=== PATIENT | male | born 1930 | race Caucasian/White ===

== ENCOUNTER → 2017-01-27 | Outpatient (REF) | payer MEDICARE | LOC: M LAB REF 12:50 | PROVIDERS: ATTEND Nurse Practitioner Family | DX: E55.9 Vitamin D deficiency, unspecified (principal); R19.7 Diarrhea, unspecified; R14.0 Abdominal distension (gaseous) ==

== ENCOUNTER → 2017-03-31 | Outpatient (REF) | payer MEDICARE | LOC: M LAB REF 11:36 | PROVIDERS: ATTEND Internal Medicine Gastroenterology | DX: R19.7 Diarrhea, unspecified (principal) ==

== ENCOUNTER → 2017-04-21 | Outpatient (CLI) | payer MEDICARE ==
[~2017-04-21] VITALS: Ht 160 cm; Wt 69.4 kg
[~2017-04-21] MED LIST: LISI-542 PO; NS 500 ML IV SCH; PROPOFOL 200 MG/20 ML VIAL As Ordered ONE; VITA10003 PO; VITA100067 PO
--- NOTE | 2017-04-21 08:00 | ROOR ---
Patient Name: Efrem Stanley Procedure Date: 04/21/2017 7:29 AM Date of : 1930 Age: 86 Room: [facility] Gender: Male Note Status: Finalized Procedure: Colonoscopy Indications: Chronic diarrhea Providers: Suresh GOLDSMITH MD Referring MD: [facility] Geovanna NUNES [facility], Admin. Requesting Provider: Medicines: Monitored Anesthesia Care Complications: No immediate complications. Procedure: Pre-Anesthesia Assessment: - The heart rate, respiratory rate, oxygen saturations, blood pressure, adequacy of pulmonary ventilation, and response to care were monitored throughout the procedure. The Colonoscope was introduced through the anus and advanced to 6 cm into the ileum. The colonoscopy was performed without difficulty. The patient tolerated the procedure well. The quality of the bowel preparation was fair. Findings: The perianal and digital rectal examinations were normal. (EXAM: Complete, PREP: Suboptimal) The colon (entire examined portion) appeared normal. Biopsies for histology were taken with a cold forceps from the entire colon for evaluation of microscopic colitis. Segmental inflammation, moderate in severity and characterized by congestion (edema), erosions and shallow ulcerations was found in the terminal ileum. Biopsies were taken with a cold forceps for histology. Impression: - Preparation of the colon was fair, suboptimal in a few areas. - Ileitis, appearance consistent with ileal Crohn's disease vs ischemic vs NSAID. Biopsied. - The entire examined colon is normal. Biopsied. - Large internal hemorrhoids. Recommendation: - Use budesonide 9 mg PO one time per day daily. - Return to my office in 4 weeks. - (the script was sent to your pharmacy on file) Suresh Goldsmith MD Suresh GOLDSMITH MD 04/21/2017 7:59:40 AM This report has been signed electronically. Number of Addenda: 0 Note Initiated On: 04/21/2017 7:29 AM Estimated Blood Loss: Estimated blood loss: none.
[2017-04-21 08:15] VITALS: BP 178/91
== END | disposition home or self-care (01) ==
LOC: M OPP 06:43
PROVIDERS: ATTEND Internal Medicine Gastroenterology
DX: K52.9 Noninfective gastroenteritis and colitis, unspecified (principal); K64.8 Other hemorrhoids; I10 Essential (primary) hypertension; F17.210 Nicotine dependence, cigarettes, uncomplicated; Z79.899 Other long term (current) drug therapy; Z80.3 Family history of malignant neoplasm of breast

== ENCOUNTER → 2017-05-25 | Outpatient (CLI) | payer MEDICARE ==
[~2017-05-25] MED LIST changes: -NS 500 ML IV SCH; -PROPOFOL 200 MG/20 ML VIAL As Ordered ONE
[2017-05-25 15:28] LABS: BASO # 0.1 K/mm3 (0.0-0.2); BASO % 0.4 % (0.0-1.0); EOS # 0.1 K/mm3 (0.0-0.50); EOS % 1.1 % (0.0-3.0); LARGE UNSTAINED CELL # 0.2 K/mm3 (0.0-0.4); LARGE UNSTAINED CELL % 1.2 % (0.0-4.0); LYMPH # 2.4 K/mm3 (1.5-4.5); MEAN CORPUSCULAR HEMOGLOBIN 30.4 pg (27.0-33.0); MEAN CORPUSCULAR HGB CONC 34.4 g/dl (32.0-36.5); MEAN CORPUSCULAR VOLUME 88.5 fl (80.0-96.0); MONO # 0.8 K/mm3 (0.0-0.8); MONO % 6.1 % (0.0-5.0); NEUTROPHILS # 9.2 K/mm3 (1.8-7.7); NEUTROPHILS % 73.1 % (36.0-66.0); PLATELET COUNT, AUTOMATED 191 k/mm3 (150-450); RED CELL DISTRIBUTION WIDTH 13.9 % (11.5-14.5); WHITE BLOOD COUNT 12.5 K/mm3 (4.0-10.0)
[2017-05-25 15:43] LABS: ALBUMIN 3.3 GM/DL (3.2-5.2); ALBUMIN/GLOBULIN RATIO 0.97 (1.00-1.93); CALCIUM LEVEL 8.8 MG/DL (8.8-10.2); CREATININE FOR GFR 1.35 MG/DL (0.70-1.30); GLOMERULAR FILTRATION RATE 53.3 (>35); POTASSIUM SERUM 3.1 MEQ/L (3.5-5.1); TOTAL PROTEIN 6.7 GM/DL (6.4-8.2)
[2017-05-25 15:59] LABS: FOLATE 6.2 NG/ML (>5.4)
[2017-05-25 16:11] LABS: ERYTHROCYTE SEDIMENTATION RATE 13 mm/hr (0-30)
[2017-06-07 06:32] LABS: PROMETHEUS IBD ANTIBODIES SEE SEPARATE REPORT; PROMETHEUS IBD SNP SEE SEPARATE REPORT
== END ==
LOC: M LAB 14:17
PROVIDERS: ATTEND Internal Medicine Gastroenterology
DX: K52.9 Noninfective gastroenteritis and colitis, unspecified (principal)

== ENCOUNTER → 2017-06-02 | Outpatient (CLI) | payer MEDICARE ==
[~2017-06-02] MED LIST changes: +E-Z-PAQUE 96% w/w SUSP 176GM BTL As Ordered ONE
--- NOTE | 2017-06-02 12:24 | REP ---
Small bowel follow-through study: History: Gastroenteritis, colitis, diarrhea. Fluoroscopy time is 2 minutes and 7 seconds. Findings: Preliminary director of business services view of the abdomen is unremarkable. The duodenal C-loop and ligament of Treitz are intact. Jejunal loops appear unremarkable. Barium opacifies the right colon after 30 minutes. Fluoroscopic spot films of the abdomen show a very small caliber narrow appearing terminal ileum but without proximal dilation. Similarly, there is a loop of small bowel in the left mid abdomen with tapered narrowing and evidence of mucosal thickening. No other small bowel abnormality is seen. Impression: There are two separate loops of narrowed ileum one proximal and the other at the terminal ileum. These are suggestive of inflammatory bowel disease. Further evaluation may be warranted with CT scanning of the abdomen and pelvis with IV and oral contrast. Signed by Srikanth Sethi MD 06/02/2017 01:59 P
== END ==
LOC: M RAD 09:15
PROVIDERS: ATTEND Internal Medicine Gastroenterology
DX: K52.9 Noninfective gastroenteritis and colitis, unspecified (principal)

== ENCOUNTER → 2017-06-29 | Outpatient (CLI) | payer MEDICARE ==
[~2017-06-29] MED LIST changes: -E-Z-PAQUE 96% w/w SUSP 176GM BTL As Ordered ONE
[2017-06-29 13:57] LABS: BLOOD UREA NITROGEN 18 MG/DL (7-18); CREATININE FOR GFR 1.44 MG/DL (0.70-1.30); GLOMERULAR FILTRATION RATE 49.5 (>35)
== END ==
LOC: M LAB 12:11
PROVIDERS: ATTEND Internal Medicine Gastroenterology
DX: K50.018 Crohn's disease of small intestine with other complication (principal); K52.9 Noninfective gastroenteritis and colitis, unspecified; R93.3 Abnormal findings on diagnostic imaging of other parts of digestive tract

== ENCOUNTER → 2017-07-14 | Outpatient (CLI) | payer MEDICARE ==
[~2017-07-14] MED LIST changes: +GASTROGRAFIN SOLUTION 30ML (Q9963) As Ordered ONE; +ISOVUE-370 76% 100ML VIAL (Q9967) As Ordered ONE
--- NOTE | 2017-07-14 13:43 | REP ---
CT of the abdomen and pelvis without and with IV contrast and with bowel contrast: Comparison is 09/16/2007. There is wall thickening of the approximate final of 30 centimeters of the terminal ileum compatible with the clinical history of Crohn disease. There is no phlegmon adjacent to the abnormal segment of small bowel. No fistulous tracts are identified. No other segments of small bowel involvement are identified. The duodenal loop is unremarkable except that I suspect there are two intraluminal lipomatous polyps in the third and fourth portions of the duodenum with the proximal one measuring 1.2 cm diameter and the distal one measuring 1.0 x 2.3 centimeters. The visualized lower lung caldera demonstrate calcific pleural plaque in the posterior sulci of the lower lobes bilaterally. The hepatic parenchyma is homogeneous on both phases of the study. There is a surgical clip in the gallbladder fossa. The pancreas is unremarkable. The spleen is unremarkable. The adrenals and kidneys are unremarkable except for a tiny left renal cortical cyst. The abdominal aorta contains calcified atheroma but is otherwise unremarkable. Pelvis: Terminal ileum is as described. The appendix has a normal appearance. There is no ascites or adenopathy. There is descending colon and sigmoid colon diverticulosis without diverticulitis. There is wall thickening of the rectosigmoid colon, nonspecific, artifact from under distension versus colitis, inflammatory versus infectious. Impression: Wall thickening of the approximate 30 cm of the terminal ileum compatible with the clinical history of Crohn disease. No phlegmon or abscess is identified adjacent to the abnormal terminal ileum. No fistulous tracts are identified. No other areas of small bowel involvement are identified. However, there is wall thickening of the rectosigmoid colon. This is nonspecific and could be artifact from under distension or inflammatory versus infectious colitis. There is diverticulosis without diverticulitis of the descending colon and sigmoid colon. There is no ascites or adenopathy. There are two lipomas polyps in the third and fourth portion of the duodenal loop. There is a small hiatal hernia. There is a cholecystectomy. Signed by Dimitri Paz MD 07/14/2017 01:35 P
== END ==
LOC: M RAD 11:12
PROVIDERS: ATTEND Internal Medicine Gastroenterology
DX: K52.9 Noninfective gastroenteritis and colitis, unspecified (principal)
CPT/HCPCS: 74178; Q9963; Q9967

== ENCOUNTER → 2017-12-02 | Outpatient (REF) | payer MEDICARE | LOC: M LAB REF 12:02 | DX: K50.018 Crohn's disease of small intestine with other complication (principal) | CPT/HCPCS: 87507 ==

== ENCOUNTER 2017-12-14 11:56 | Outpatient (CLI) | payer MEDICARE ==
[2017-12-14] MEDS: diphenhydrAMINE 25 MG CAP PO (12:49)
[2017-12-14] MEDS: ACETAMINOPHEN TAB 650MG DOSE (2X325MG) PO (12:49)
[2017-12-14] MEDS: NS 1,000 ML IV (13:31)
[2017-12-14] MEDS: INFLIXIMAB BIOSIMILAR 400 MG in NS 210 ML IV (13:31)
== END 2017-12-14 16:00 | disposition home or self-care (01) ==
LOC: M INFU 11:56
DX: K50.90 Crohn's disease, unspecified, without complications (principal); I10 Essential (primary) hypertension; F17.210 Nicotine dependence, cigarettes, uncomplicated; Z79.899 Other long term (current) drug therapy
CPT/HCPCS: Q5102

== ENCOUNTER 2017-12-28 14:11 | Outpatient (CLI) | payer MEDICARE ==
[2017-12-28] MEDS: ACETAMINOPHEN TAB 650MG DOSE (2X325MG) PO (14:33)
[2017-12-28] MEDS: diphenhydrAMINE 25 MG CAP PO (14:33)
[2017-12-28] MEDS: NS 1,000 ML IV (14:46)
[2017-12-28] MEDS: INFLIXIMAB BIOSIMILAR 400 MG in NS 210 ML IV (14:47)
== END 2017-12-28 17:30 | disposition home or self-care (01) ==
LOC: M INFU 14:11
DX: K50.90 Crohn's disease, unspecified, without complications (principal); I10 Essential (primary) hypertension; F17.200 Nicotine dependence, unspecified, uncomplicated; Z79.899 Other long term (current) drug therapy; Z80.3 Family history of malignant neoplasm of breast
CPT/HCPCS: Q5102

== ENCOUNTER 2018-01-25 09:11 | Outpatient (CLI) | payer MEDICARE ==
[2018-01-25] MEDS: diphenhydrAMINE 25 MG CAP PO (09:25)
[2018-01-25] MEDS: ACETAMINOPHEN TAB 650MG DOSE (2X325MG) PO (09:25)
[2018-01-25] MEDS: NS 1,000 ML IV (09:26)
[2018-01-25] MEDS: inFLIXimab INJECTION 400 MG in NS 210 ML IV (10:01)
== END 2018-01-25 12:15 | disposition home or self-care (01) ==
LOC: M INFU 09:11
DX: K50.90 Crohn's disease, unspecified, without complications (principal); I10 Essential (primary) hypertension; Z79.899 Other long term (current) drug therapy; F17.210 Nicotine dependence, cigarettes, uncomplicated
CPT/HCPCS: J1745

== ENCOUNTER → 2018-03-01 | Outpatient (CLI) | payer MEDICARE ==
[2018-03-01 17:33] LABS: BASO # 0.1 10^3/uL (0.0-0.2); BASO % 0.6 % (0.0-1.0); EOS # 0.2 10^3/uL (0.0-0.50); EOS % 1.7 % (0.0-3.0); HEMATOCRIT 39.8 % (42.0-52.0); HEMOGLOBIN 13.8 g/dl (13.5-17.5); IMMATURE GRANULOCYTE % 0.3 % (0-3.0); LYMPH # 3.2 10^3/uL (1.5-4.5); LYMPH % 27.4 % (24.0-44.0); MEAN CORPUSCULAR HEMOGLOBIN 29.7 pg (27.0-33.0); MEAN CORPUSCULAR HGB CONC 34.7 g/dl (32.0-36.5); MEAN CORPUSCULAR VOLUME 85.8 fl (80.0-96.0); MONO # 1.2 10^3/uL (0.0-0.8); MONO % 10.4 % (0.0-5.0); NEUTROPHILS % 59.6 % (36.0-66.0); PLATELET COUNT, AUTOMATED 237 10^3/uL (150-450); RED BLOOD COUNT 4.64 10^6/uL (4.30-6.10); RED CELL DISTRIBUTION WIDTH 14.4 % (11.5-14.5); WHITE BLOOD COUNT 11.7 10^3/uL (4.0-10.0)
[2018-03-01 18:51] LABS: VITAMIN B12 LEVEL 247 PG/ML
[2018-03-01 19:59] LABS: ALBUMIN 3.3 GM/DL (3.2-5.2); ALBUMIN/GLOBULIN RATIO 0.92 (1.00-1.93); ALKALINE PHOSPHATASE 82 U/L (45-117); ALT/SGPT 12 U/L (12-78); ANION GAP 4 MEQ/L (8-16); AST/SGOT 12 U/L (7-37); BILIRUBIN,TOTAL 0.4 MG/DL (0.2-1.0); BLOOD UREA NITROGEN 12 MG/DL (7-18); C REACTIVE PROTEIN QUANTITATIV 0.35 MG/DL (0.00-0.30); CALCIUM LEVEL 8.6 MG/DL (8.8-10.2); CARBON DIOXIDE LEVEL 31 MEQ/L (21-32); CHLORIDE LEVEL 110 MEQ/L (98-107); CREATININE FOR GFR 1.18 MG/DL (0.70-1.30); GLOMERULAR FILTRATION RATE > 60.0 (>35); GLUCOSE, FASTING 92 MG/DL (70-100); POTASSIUM SERUM 3.4 MEQ/L (3.5-5.1); SODIUM LEVEL 145 MEQ/L (136-145); TOTAL PROTEIN 6.9 GM/DL (6.4-8.2)
[2018-03-01 21:28] LABS: ERYTHROCYTE SEDIMENTATION RATE 25 mm/hr (0-30)
== END ==
LOC: M LAB 16:56
DX: K50.018 Crohn's disease of small intestine with other complication (principal)
CPT/HCPCS: 82746

== ENCOUNTER 2018-04-05 14:14 | Outpatient (CLI) | payer MEDICARE ==
[2018-04-05] MEDS ORDERED: ACETAMINOPHEN TAB 650MG DOSE (2X325MG) PO (15:00)
[2018-04-05] MEDS ORDERED: inFLIXimab INJECTION 400 MG in NS 210 ML IV (15:00)
[2018-04-05] MEDS ORDERED: NS 1,000 ML IV (15:00)
[2018-04-05] MEDS ORDERED: FILTER 1.2 MICRON (ADULT TPN/MANNITOL/REMICADE) XX (15:00)
[2018-04-05] MEDS ORDERED: diphenhydrAMINE 25 MG CAP PO (15:00)
[2018-04-05] MEDS: VEDOLIZUMAB 300 MG in NS 250 ML IV (15:15)
== END 2018-04-05 16:20 | disposition home or self-care (01) ==
LOC: M INFU 14:14
DX: K50.90 Crohn's disease, unspecified, without complications (principal); Z79.899 Other long term (current) drug therapy
CPT/HCPCS: J3380

== ENCOUNTER 2018-04-10 16:12 | Inpatient (IN) | payer MEDICARE ==
[2018-04-10 17:15] LABS: BASO # 0.1 10^3/uL (0.0-0.2); BASO % 0.3 % (0.0-1.0); EOS # 0.1 10^3/uL (0.0-0.50); EOS % 0.8 % (0.0-3.0); HEMATOCRIT 40.1 % (42.0-52.0); IMMATURE GRANULOCYTE % 0.5 % (0-3.0); LYMPH # 4.1 10^3/uL (1.5-4.5); LYMPH % 23.7 % (24.0-44.0); MEAN CORPUSCULAR HEMOGLOBIN 30.4 pg (27.0-33.0); MEAN CORPUSCULAR HGB CONC 34.9 g/dl (32.0-36.5); MEAN CORPUSCULAR VOLUME 87.2 fl (80.0-96.0); MONO # 1.6 10^3/uL (0.0-0.8); MONO % 9.4 % (0.0-5.0); NEUTROPHILS # 11.3 10^3/uL (1.8-7.7); NEUTROPHILS % 65.3 % (36.0-66.0); PLATELET COUNT, AUTOMATED 251 10^3/uL (150-450); RED CELL DISTRIBUTION WIDTH 14.6 % (11.5-14.5); WHITE BLOOD COUNT 17.3 10^3/uL (4.0-10.0)
[2018-04-10 17:24] LABS: ALBUMIN 3.4 GM/DL (3.2-5.2); ALBUMIN/GLOBULIN RATIO 0.83 (1.00-1.93); ALKALINE PHOSPHATASE 84 U/L (45-117); ALT/SGPT 13 U/L (12-78); ANION GAP 12 MEQ/L (8-16); AST/SGOT 12 U/L (7-37); BILIRUBIN,DIRECT 0.2 MG/DL (0.0-0.2); BILIRUBIN,TOTAL 0.8 MG/DL (0.2-1.0); BLOOD UREA NITROGEN 20 MG/DL (7-18); CALCIUM LEVEL 8.2 MG/DL (8.8-10.2); CARBON DIOXIDE LEVEL 25 MEQ/L (21-32); CHLORIDE LEVEL 108 MEQ/L (98-107); CREATININE FOR GFR 2.15 MG/DL (0.70-1.30); GLOMERULAR FILTRATION RATE 31.1 (>35); GLUCOSE, FASTING 167 MG/DL (70-100); LIPASE 82 U/L (73-393); POTASSIUM SERUM 2.8 MEQ/L (3.5-5.1); SODIUM LEVEL 145 MEQ/L (136-145); TOTAL PROTEIN 7.5 GM/DL (6.4-8.2)
[2018-04-10] MEDS: POTASSIUM CHLORIDE 10 MEQ SR TABLET PO ×2 (17:40→21:12)
[2018-04-10] MEDS: KCL 10MEQ/100ML SWI (KRUN) 10 MEQ in APPROPRIATE DILUENT 1 EA IV (17:40)
[2018-04-10] MEDS: NS 1,000 ML IV ×2 (17:43→19:49)
[2018-04-10] MEDS ORDERED: ACETAMINOPHEN TAB 650MG DOSE (2X325MG) PO (18:30)
[2018-04-10 20:42] LABS: POTASSIUM SERUM 2.9 MEQ/L (3.5-5.1)
[2018-04-10] MEDS: CIPROFLOXACIN 400 MG in APPROPRIATE DILUENT 1 EA IV (21:12)
[2018-04-10] MEDS: metroNIDAZOLE 500 MG in APPROPRIATE DILUENT 1 EA IV (22:24)
[2018-04-11] MEDS: metroNIDAZOLE 500 MG in APPROPRIATE DILUENT 1 EA IV ×3 (05:28→22:13)
[2018-04-11 05:39] LABS: BASO # 0.1 10^3/uL (0.0-0.2); BASO % 0.4 % (0.0-1.0); EOS # 0.3 10^3/uL (0.0-0.50); EOS % 1.8 % (0.0-3.0); HEMATOCRIT 34.7 % (42.0-52.0); HEMOGLOBIN 12.1 g/dl (13.5-17.5); IMMATURE GRANULOCYTE % 0.3 % (0-3.0); LYMPH # 2.8 10^3/uL (1.5-4.5); MEAN CORPUSCULAR HGB CONC 34.9 g/dl (32.0-36.5); MEAN CORPUSCULAR VOLUME 86.1 fl (80.0-96.0); MONO # 1.7 10^3/uL (0.0-0.8); MONO % 10.8 % (0.0-5.0); NEUTROPHILS # 10.6 10^3/uL (1.8-7.7); NEUTROPHILS % 68.7 % (36.0-66.0); PLATELET COUNT, AUTOMATED 180 10^3/uL (150-450); RED BLOOD COUNT 4.03 10^6/uL (4.30-6.10); RED CELL DISTRIBUTION WIDTH 14.4 % (11.5-14.5); WHITE BLOOD COUNT 15.4 10^3/uL (4.0-10.0)
[2018-04-11 06:01] LABS: ALBUMIN 2.7 GM/DL (3.2-5.2); ALBUMIN/GLOBULIN RATIO 0.82 (1.00-1.93); ALKALINE PHOSPHATASE 70 U/L (45-117); ALT/SGPT 11 U/L (12-78); ANION GAP 10 MEQ/L (8-16); AST/SGOT 11 U/L (7-37); BILIRUBIN,TOTAL 0.7 MG/DL (0.2-1.0); BLOOD UREA NITROGEN 17 MG/DL (7-18); CALCIUM LEVEL 7.9 MG/DL (8.8-10.2); CARBON DIOXIDE LEVEL 24 MEQ/L (21-32); CHLORIDE LEVEL 114 MEQ/L (98-107); CREATININE FOR GFR 1.48 MG/DL (0.70-1.30); GLOMERULAR FILTRATION RATE 47.9 (>35); GLUCOSE, FASTING 106 MG/DL (70-100); MAGNESIUM LEVEL 1.5 MG/DL (1.8-2.4); POTASSIUM SERUM 3.2 MEQ/L (3.5-5.1); SODIUM LEVEL 148 MEQ/L (136-145)
[2018-04-11 08:12] LABS: C REACTIVE PROTEIN QUANTITATIV 0.44 MG/DL (0.00-0.30)
[2018-04-11 08:28] LABS: ERYTHROCYTE SEDIMENTATION RATE 21 mm/hr (0-30)
[2018-04-11] MEDS: PANTOPRAZOLE 40MG TAB (PROTONIX) PO (09:34)
[2018-04-11] MEDS: CIPROFLOXACIN 400 MG in APPROPRIATE DILUENT 1 EA IV ×2 (09:34→20:30)
[2018-04-11] MEDS: POTASSIUM CHLORIDE 10 MEQ SR TABLET PO (09:35)
[2018-04-11] MEDS: POTASSIUM CHLORIDE INJ 40 MEQ in NS 0.45% 1,000 ML IV (10:08)
[2018-04-11] MEDS: amLODIPine 5 MG TAB PO (11:15)
[2018-04-12] MEDS: POTASSIUM CHLORIDE INJ 40 MEQ in NS 0.45% 1,000 ML IV (02:34)
[2018-04-12 04:09] LABS: BASO # 0.1 10^3/uL (0.0-0.2); BASO % 0.5 % (0.0-1.0); EOS # 0.3 10^3/uL (0.0-0.50); EOS % 2.4 % (0.0-3.0); HEMATOCRIT 33.5 % (42.0-52.0); HEMOGLOBIN 11.5 g/dl (13.5-17.5); IMMATURE GRANULOCYTE % 0.5 % (0-3.0); LYMPH # 2.3 10^3/uL (1.5-4.5); LYMPH % 17.5 % (24.0-44.0); MEAN CORPUSCULAR HEMOGLOBIN 29.9 pg (27.0-33.0); MEAN CORPUSCULAR HGB CONC 34.3 g/dl (32.0-36.5); MEAN CORPUSCULAR VOLUME 87.2 fl (80.0-96.0); MONO # 1.3 10^3/uL (0.0-0.8); MONO % 10.1 % (0.0-5.0); NEUTROPHILS # 9.1 10^3/uL (1.8-7.7); PLATELET COUNT, AUTOMATED 155 10^3/uL (150-450); RED BLOOD COUNT 3.84 10^6/uL (4.30-6.10); RED CELL DISTRIBUTION WIDTH 14.4 % (11.5-14.5); WHITE BLOOD COUNT 13.2 10^3/uL (4.0-10.0)
[2018-04-12 04:27] LABS: ALBUMIN 2.5 GM/DL (3.2-5.2); ALBUMIN/GLOBULIN RATIO 0.74 (1.00-1.93); ALKALINE PHOSPHATASE 63 U/L (45-117); ALT/SGPT 11 U/L (12-78); ANION GAP 7 MEQ/L (8-16); AST/SGOT 12 U/L (7-37); BLOOD UREA NITROGEN 10 MG/DL (7-18); CALCIUM LEVEL 7.7 MG/DL (8.8-10.2); CARBON DIOXIDE LEVEL 25 MEQ/L (21-32); CHLORIDE LEVEL 115 MEQ/L (98-107); CREATININE FOR GFR 1.12 MG/DL (0.70-1.30); GLOMERULAR FILTRATION RATE > 60.0 (>35); GLUCOSE, FASTING 96 MG/DL (70-100); POTASSIUM SERUM 3.6 MEQ/L (3.5-5.1); SODIUM LEVEL 147 MEQ/L (136-145); TOTAL PROTEIN 5.9 GM/DL (6.4-8.2)
[2018-04-12] MEDS: metroNIDAZOLE 500 MG in APPROPRIATE DILUENT 1 EA IV ×3 (05:29→22:57)
[2018-04-12 08:21] LABS: MAGNESIUM LEVEL 1.4 MG/DL (1.8-2.4)
[2018-04-12] MEDS: PANTOPRAZOLE 40MG TAB (PROTONIX) PO (08:39)
[2018-04-12] MEDS: CIPROFLOXACIN 400 MG in APPROPRIATE DILUENT 1 EA IV ×2 (08:39→21:39)
[2018-04-12] MEDS: amLODIPine 5 MG TAB PO (08:39)
[2018-04-12] MEDS: MAG SULF 1GM/100ML (MAG RUN) 1 GM in APPROPRIATE DILUENT 1 EA IV ×3 (11:32→13:45)
[2018-04-12] MEDS: methylPREDNISolone INJ 125 MG/2 ML VIAL (J2930) IV (14:45)
[2018-04-12] MEDS: HEPARIN SOD (PORCINE) 5000 UNITS/ML VIAL SQ ×2 (14:45→21:38)
[2018-04-13 05:45] LABS: BASO % 0.2 % (0.0-1.0); EOS % 0.1 % (0.0-3.0); HEMATOCRIT 34.3 % (42.0-52.0); HEMOGLOBIN 12.1 g/dl (13.5-17.5); IMMATURE GRANULOCYTE % 0.5 % (0-3.0); LYMPH # 1.4 10^3/uL (1.5-4.5); LYMPH % 10.9 % (24.0-44.0); MEAN CORPUSCULAR HEMOGLOBIN 30.1 pg (27.0-33.0); MEAN CORPUSCULAR HGB CONC 35.3 g/dl (32.0-36.5); MEAN CORPUSCULAR VOLUME 85.3 fl (80.0-96.0); MONO # 0.8 10^3/uL (0.0-0.8); NEUTROPHILS # 10.8 10^3/uL (1.8-7.7); NEUTROPHILS % 82.3 % (36.0-66.0); PLATELET COUNT, AUTOMATED 182 10^3/uL (150-450); RED BLOOD COUNT 4.02 10^6/uL (4.30-6.10); WHITE BLOOD COUNT 13.1 10^3/uL (4.0-10.0)
[2018-04-13] MEDS: metroNIDAZOLE 500 MG in APPROPRIATE DILUENT 1 EA IV ×3 (05:52→22:27)
[2018-04-13] MEDS: HEPARIN SOD (PORCINE) 5000 UNITS/ML VIAL SQ ×3 (05:53→21:16)
[2018-04-13 06:04] LABS: ALBUMIN 2.7 GM/DL (3.2-5.2); ALBUMIN/GLOBULIN RATIO 0.82 (1.00-1.93); ALKALINE PHOSPHATASE 68 U/L (45-117); ALT/SGPT 12 U/L (12-78); ANION GAP 9 MEQ/L (8-16); AST/SGOT 12 U/L (7-37); BILIRUBIN,TOTAL 0.6 MG/DL (0.2-1.0); BLOOD UREA NITROGEN 8 MG/DL (7-18); CALCIUM LEVEL 8.2 MG/DL (8.8-10.2); CARBON DIOXIDE LEVEL 25 MEQ/L (21-32); CHLORIDE LEVEL 111 MEQ/L (98-107); CREATININE FOR GFR 1.05 MG/DL (0.70-1.30); GLOMERULAR FILTRATION RATE > 60.0 (>35); GLUCOSE, FASTING 130 MG/DL (70-100); POTASSIUM SERUM 3.8 MEQ/L (3.5-5.1); SODIUM LEVEL 145 MEQ/L (136-145)
[2018-04-13] MEDS: CIPROFLOXACIN 400 MG in APPROPRIATE DILUENT 1 EA IV ×2 (09:23→21:14)
[2018-04-13] MEDS: LISINOPRIL 10 MG TAB PO (09:24)
[2018-04-13] MEDS: methylPREDNISolone INJ 125 MG/2 ML VIAL (J2930) IV (09:24)
[2018-04-13] MEDS: PANTOPRAZOLE 40MG TAB (PROTONIX) PO (09:25)
[2018-04-14 05:10] LABS: BASO % 0.1 % (0.0-1.0); EOS % 0.1 % (0.0-3.0); HEMATOCRIT 33.5 % (42.0-52.0); HEMOGLOBIN 11.6 g/dl (13.5-17.5); IMMATURE GRANULOCYTE % 0.4 % (0-3.0); LYMPH % 12.9 % (24.0-44.0); MEAN CORPUSCULAR HEMOGLOBIN 30.3 pg (27.0-33.0); MEAN CORPUSCULAR HGB CONC 34.6 g/dl (32.0-36.5); MEAN CORPUSCULAR VOLUME 87.5 fl (80.0-96.0); MONO % 6.1 % (0.0-5.0); NEUTROPHILS # 12.7 10^3/uL (1.8-7.7); NEUTROPHILS % 80.4 % (36.0-66.0); PLATELET COUNT, AUTOMATED 186 10^3/uL (150-450); RED BLOOD COUNT 3.83 10^6/uL (4.30-6.10); RED CELL DISTRIBUTION WIDTH 14.4 % (11.5-14.5); WHITE BLOOD COUNT 15.8 10^3/uL (4.0-10.0)
[2018-04-14] MEDS: HEPARIN SOD (PORCINE) 5000 UNITS/ML VIAL SQ (05:33)
[2018-04-14] MEDS: metroNIDAZOLE 500 MG in APPROPRIATE DILUENT 1 EA IV (05:33)
[2018-04-14 05:44] LABS: ALBUMIN 2.5 GM/DL (3.2-5.2); ALBUMIN/GLOBULIN RATIO 0.74 (1.00-1.93); ALKALINE PHOSPHATASE 58 U/L (45-117); ALT/SGPT 10 U/L (12-78); ANION GAP 9 MEQ/L (8-16); AST/SGOT 10 U/L (7-37); BILIRUBIN,TOTAL 0.5 MG/DL (0.2-1.0); BLOOD UREA NITROGEN 9 MG/DL (7-18); CALCIUM LEVEL 8.3 MG/DL (8.8-10.2); CARBON DIOXIDE LEVEL 26 MEQ/L (21-32); CHLORIDE LEVEL 112 MEQ/L (98-107); CREATININE FOR GFR 1.18 MG/DL (0.70-1.30); GLOMERULAR FILTRATION RATE > 60.0 (>35); GLUCOSE, FASTING 100 MG/DL (70-100); MAGNESIUM LEVEL 1.6 MG/DL (1.8-2.4); POTASSIUM SERUM 3.4 MEQ/L (3.5-5.1); SODIUM LEVEL 147 MEQ/L (136-145); TOTAL PROTEIN 5.9 GM/DL (6.4-8.2)
[2018-04-14] MEDS: D5W 1,000 ML IV (09:03)
[2018-04-14] MEDS: CIPROFLOXACIN 400 MG in APPROPRIATE DILUENT 1 EA IV (09:03)
[2018-04-14] MEDS: MAG SULF 1GM/100ML (MAG RUN) 1 GM in APPROPRIATE DILUENT 1 EA IV (09:04)
[2018-04-14] MEDS: methylPREDNISolone INJ 125 MG/2 ML VIAL (J2930) IV (09:04)
[2018-04-14] MEDS: LISINOPRIL 10 MG TAB PO (09:05)
[2018-04-14] MEDS: POTASSIUM CHLORIDE 10 MEQ SR TABLET PO (09:05)
[2018-04-14] MEDS: PANTOPRAZOLE 40MG TAB (PROTONIX) PO (09:05)
[2018-04-14 12:42] LABS: ANION GAP 6 MEQ/L (8-16); BLOOD UREA NITROGEN 9 MG/DL (7-18); CALCIUM LEVEL 8.3 MG/DL (8.8-10.2); CARBON DIOXIDE LEVEL 27 MEQ/L (21-32); CHLORIDE LEVEL 112 MEQ/L (98-107); CREATININE FOR GFR 1.11 MG/DL (0.70-1.30); GLOMERULAR FILTRATION RATE > 60.0 (>35); GLUCOSE, FASTING 105 MG/DL (70-100); POTASSIUM SERUM 3.6 MEQ/L (3.5-5.1); SODIUM LEVEL 145 MEQ/L (136-145)
== END 2018-04-14 14:46 | disposition home or self-care (01) | DRG 386 ==
LOC: M ED 16:12 → M ED INP 18:40 → M PCU 20:52
DX: K50.818 Crohn's disease of both small and large intestine with other complication (principal); N17.9 Acute kidney failure, unspecified; E87.0 Hyperosmolality and hypernatremia; K52.9 Noninfective gastroenteritis and colitis, unspecified; E87.6 Hypokalemia; K57.30 Diverticulosis of large intestine without perforation or abscess without bleeding; Z79.899 Other long term (current) drug therapy; I10 Essential (primary) hypertension; F17.210 Nicotine dependence, cigarettes, uncomplicated; D72.829 Elevated white blood cell count, unspecified

== ENCOUNTER 2018-04-19 13:33 | Outpatient (CLI) | payer MEDICARE ==
[2018-04-19] MEDS: VEDOLIZUMAB 300 MG in NS 250 ML IV (14:30)
== END 2018-04-19 15:20 | disposition home or self-care (01) ==
LOC: M INFU 13:33
DX: K50.90 Crohn's disease, unspecified, without complications (principal); Z79.899 Other long term (current) drug therapy
CPT/HCPCS: J3380

== ENCOUNTER → 2018-05-01 | Outpatient (REF) | payer MEDICARE ==
[2018-05-01 19:06] LABS: ALBUMIN 3.3 GM/DL (3.2-5.2); ALKALINE PHOSPHATASE 67 U/L (45-117); ALT/SGPT 19 U/L (12-78); ANION GAP 11 MEQ/L (8-16); AST/SGOT 17 U/L (7-37); BILIRUBIN,TOTAL 0.7 MG/DL (0.2-1.0); BLOOD UREA NITROGEN 26 MG/DL (7-18); CALCIUM LEVEL 8.6 MG/DL (8.8-10.2); CARBON DIOXIDE LEVEL 29 MEQ/L (21-32); CHLORIDE LEVEL 103 MEQ/L (98-107); CREATININE FOR GFR 1.61 MG/DL (0.70-1.30); GLOMERULAR FILTRATION RATE 43.4 (>35); GLUCOSE, FASTING 210 MG/DL (70-100); MAGNESIUM LEVEL 1.6 MG/DL (1.8-2.4); SODIUM LEVEL 143 MEQ/L (136-145); TOTAL PROTEIN 6.6 GM/DL (6.4-8.2)
== END ==
LOC: M LAB REF 17:41
DX: R19.7 Diarrhea, unspecified (principal); K50.818 Crohn's disease of both small and large intestine with other complication
CPT/HCPCS: 83735

== ENCOUNTER → 2018-05-03 | Outpatient (CLI) | payer MEDICARE | LOC: M RAD 09:29 | DX: M79.671 Pain in right foot (principal) | CPT/HCPCS: 73600 ==

== ENCOUNTER 2018-05-17 14:50 | Outpatient (CLI) | payer MEDICARE ==
[2018-05-17] MEDS: VEDOLIZUMAB 300 MG in NS 250 ML IV (15:08)
== END 2018-05-17 15:35 | disposition home or self-care (01) ==
LOC: M INFU 14:50
DX: K50.90 Crohn's disease, unspecified, without complications (principal); Z79.899 Other long term (current) drug therapy
CPT/HCPCS: J3380

== ENCOUNTER → 2018-06-29 | Outpatient (REF) | payer MEDICARE ==
[2018-06-29 13:33] LABS: BASO # 0.1 10^3/uL (0.0-0.2); BASO % 0.5 % (0.0-1.0); EOS # 0.3 10^3/uL (0.0-0.50); EOS % 1.7 % (0.0-3.0); HEMATOCRIT 40.1 % (42.0-52.0); HEMOGLOBIN 13.5 g/dl (13.5-17.5); IMMATURE GRANULOCYTE % 0.4 % (0-3.0); LYMPH # 2.2 10^3/uL (1.5-4.5); LYMPH % 14.7 % (24.0-44.0); MEAN CORPUSCULAR HEMOGLOBIN 29.6 pg (27.0-33.0); MEAN CORPUSCULAR HGB CONC 33.7 g/dl (32.0-36.5); MEAN CORPUSCULAR VOLUME 87.9 fl (80.0-96.0); NEUTROPHILS # 11.2 10^3/uL (1.8-7.7); NEUTROPHILS % 75.7 % (36.0-66.0); PLATELET COUNT, AUTOMATED 266 10^3/uL (150-450); RED BLOOD COUNT 4.56 10^6/uL (4.30-6.10); RED CELL DISTRIBUTION WIDTH 14.6 % (11.5-14.5); WHITE BLOOD COUNT 14.8 10^3/uL (4.0-10.0)
[2018-06-29 14:38] LABS: RHEUMATOID FACTOR QUANT < 10.0 IU/ML (<15.0)
[2018-06-29 15:20] LABS: ERYTHROCYTE SEDIMENTATION RATE 43 mm/hr (0-30)
[2018-06-30 10:06] LABS: FOLATE 4.1 NG/ML
[2018-07-04 11:21] LABS: DRVV SCREEN 44.2 SEC
[2018-07-04 11:22] LABS: PTT LUPUS TYPE ANTICOAG SCREEN 1.1 (0-1.2)
[2018-07-05 08:06] LABS: ANTI DOUBLE STRAND-DNA AB <1 IU/mL (0-9); ANTINUCLEAR ANTIBODIES DIRECT Negative (Negative); CERULOPLASMIN 21.3 mg/dL (16.0-31.0); COPPER PLASMA 96 ug/dL (72-166); LEAD BLOOD ADULT 5 ug/dL (0-4); MERCURY LEVEL None Detected ug/L (0.0-14.9); SJOGREN'S ANTI SS-A <0.2 AI (0.0-0.9); SJOGREN'S ANTI SS-B <0.2 AI (0.0-0.9); VITAMIN B1 LEVEL WHOLE BLOOD 142.1 nmol/L (66.5-200.0); VITAMIN B6,PYRIDOXAL PHOSPHATE 1.3 ug/L (5.3-46.7); VITAMIN E(ALPHA TOCOPHEROL) 8.5 mg/L (9.0-29.0); VITAMIN E(GAMMA TOCOPHEROL) 1.7 mg/L (0.5-4.9)
== END ==
LOC: M LABNEURO 13:00
DX: R41.82 Altered mental status, unspecified (principal)
CPT/HCPCS: 82525

== ENCOUNTER 2018-07-12 09:22 | Outpatient (CLI) | payer MEDICARE ==
[2018-07-12] MEDS: VEDOLIZUMAB 300 MG in NS 250 ML IV (10:05)
== END 2018-07-12 10:50 | disposition home or self-care (01) ==
LOC: M INFU 09:22
DX: K50.90 Crohn's disease, unspecified, without complications (principal)
CPT/HCPCS: J3380

== ENCOUNTER → 2018-08-01 | Outpatient (CLI) | payer MEDICARE ==
[2018-08-01 19:22] LABS: BLOOD UREA NITROGEN 19 MG/DL (7-18)
[2018-08-01 19:22] LABS: CREATININE FOR GFR 1.12 MG/DL (0.70-1.30); GLOMERULAR FILTRATION RATE > 60.0 (>35)
== END ==
LOC: M LAB 11:04
DX: N18.9 Chronic kidney disease, unspecified (principal)
CPT/HCPCS: 82565

== ENCOUNTER 2018-08-15 15:26 | Emergency (ER) | payer MEDICARE ==
[2018-08-15 16:52] LABS: BASO % 0.1 % (0.0-1.0); EOS # 0.3 10^3/uL (0.0-0.50); EOS % 1.2 % (0.0-3.0); HEMATOCRIT 41.4 % (42.0-52.0); HEMOGLOBIN 13.2 g/dl (13.5-17.5); LYMPH # 2.4 10^3/uL (1.5-4.5); LYMPH % 9.8 % (24.0-44.0); MEAN CORPUSCULAR HEMOGLOBIN 30.5 pg (27.0-33.0); MEAN CORPUSCULAR HGB CONC 31.9 g/dl (32.0-36.5); MEAN CORPUSCULAR VOLUME 95.6 fl (80.0-96.0); MONO # 1.8 10^3/uL (0.0-0.8); MONO % 7.2 % (0.0-5.0); NEUTROPHILS # 19.5 10^3/uL (1.8-7.7); NEUTROPHILS % 80.7 % (36.0-66.0); PLATELET COUNT, AUTOMATED 298 10^3/uL (150-450); RED BLOOD COUNT 4.33 10^6/uL (4.30-6.10); RED CELL DISTRIBUTION WIDTH 13.8 % (11.5-14.5); WHITE BLOOD COUNT 24.2 10^3/uL (4.0-10.0)
[2018-08-15 17:20] LABS: ALBUMIN 3.4 GM/DL (3.2-5.2); ALBUMIN/GLOBULIN RATIO 0.97 (1.00-1.93); ALKALINE PHOSPHATASE 87 U/L (45-117); ALT/SGPT 36 U/L (12-78); ANION GAP 8 MEQ/L (8-16); AST/SGOT 19 U/L (7-37); BILIRUBIN,DIRECT 0.1 MG/DL (0.0-0.2); BILIRUBIN,TOTAL 0.5 MG/DL (0.2-1.0); BLOOD UREA NITROGEN 34 MG/DL (7-18); CALCIUM LEVEL 8.7 MG/DL (8.8-10.2); CARBON DIOXIDE LEVEL 27 MEQ/L (21-32); CHLORIDE LEVEL 100 MEQ/L (98-107); CPK CREATINE PHOSPHOKINASE 76 U/L (39-308); CREATININE FOR GFR 1.45 MG/DL (0.70-1.30); FREE T4 1.44 NG/DL (0.76-1.46); GLUCOSE, FASTING 91 MG/DL (70-100); MAGNESIUM LEVEL 1.9 MG/DL (1.8-2.4); MB/CK RELATIVE INDEX 5.13 (< OR =4); POTASSIUM SERUM 4.3 MEQ/L (3.5-5.1); SODIUM LEVEL 135 MEQ/L (136-145); TOTAL PROTEIN 6.9 GM/DL (6.4-8.2); TROPONIN I < 0.02 NG/ML (< 0.10)
== END 2018-08-15 19:14 | disposition home or self-care (01) ==
LOC: M ED 15:26
DX: Z13.6 Encounter for screening for cardiovascular disorders (principal); I10 Essential (primary) hypertension; K50.90 Crohn's disease, unspecified, without complications; N17.9 Acute kidney failure, unspecified; F17.200 Nicotine dependence, unspecified, uncomplicated; Z98.890 Other specified postprocedural states; Z79.899 Other long term (current) drug therapy; Z79.2 Long term (current) use of antibiotics
CPT/HCPCS: 93005

== ENCOUNTER → 2018-08-28 | Outpatient (CLI) | payer MEDICARE ==
[2018-08-28 14:19] LABS: ALBUMIN/GLOBULIN RATIO 0.94 (1.00-1.93); ALKALINE PHOSPHATASE 138 U/L (45-117); ALT/SGPT 25 U/L (12-78); ANION GAP 7 MEQ/L (8-16); AST/SGOT 13 U/L (7-37); BILIRUBIN,TOTAL 0.3 MG/DL (0.2-1.0); BLOOD UREA NITROGEN 15 MG/DL (7-18); CALCIUM LEVEL 8.6 MG/DL (8.8-10.2); CARBON DIOXIDE LEVEL 25 MEQ/L (21-32); CHLORIDE LEVEL 112 MEQ/L (98-107); CREATININE FOR GFR 1.23 MG/DL (0.70-1.30); GLOMERULAR FILTRATION RATE 59.3 (>35); GLUCOSE, FASTING 100 MG/DL (70-100); POTASSIUM SERUM 4.1 MEQ/L (3.5-5.1); SODIUM LEVEL 144 MEQ/L (136-145); TOTAL PROTEIN 6.2 GM/DL (6.4-8.2)
== END ==
LOC: M LAB 13:21
DX: I10 Essential (primary) hypertension (principal)
CPT/HCPCS: 80053

== ENCOUNTER 2018-08-30 14:20 | Emergency (ER) | payer MEDICARE | END 2018-08-30 15:09 | disposition home or self-care (01) | LOC: M ED 14:20 | DX: L30.9 Dermatitis, unspecified (principal); I51.9 Heart disease, unspecified; I10 Essential (primary) hypertension; Z87.891 Personal history of nicotine dependence; Z79.899 Other long term (current) drug therapy | CPT/HCPCS: 99282 ==

== ENCOUNTER 2018-09-20 08:53 | Outpatient (CLI) | payer MEDICARE ==
[~2018-09-20] VITALS: Ht 160 cm; Wt 70.7 kg
[~2018-09-20 08:53] MED LIST changes: +ACET325T10 PO; +AMLO25TA PO; +AMOX-CLAV PO; +AUGM875T28 PO; +CIPR1TAB20 PO; +CLOTR1CR TOP; +DEXA2TA PO; +ENTY1INJ IV; +FLAG500T PO; -GASTROGRAFIN SOLUTION 30ML (Q9963) As Ordered ONE; -ISOVUE-370 76% 100ML VIAL (Q9967) As Ordered ONE; +LEVE100SOL PO; +LEVE250T5 PO; +LISI-538; +LISI10TA4 PO; +MAGN64TASA PO; +PANT40TA3 PO; +PENT500C; +PRED10TA2 PO
[2018-09-20 09:00] VITALS: BP_SYST 168; BP_SYST 171; BP_DIAS 74; BP_DIAS 76
[2018-09-20] MEDS ORDERED: VEDOLIZUMAB 300 MG in NS 250 ML IV ONE (09:15)
[2018-09-20 10:15] VITALS: BP 168/76
== END 2018-09-20 10:15 | disposition home or self-care (01) ==
LOC: M INFU 08:53
PROVIDERS: ATTEND Internal Medicine Gastroenterology
DX: K50.90 Crohn's disease, unspecified, without complications (principal)
CPT/HCPCS: 96365; J3380

== ENCOUNTER 2018-10-20 12:21 | Emergency (ER) | payer MEDICARE ==
[~2018-10-20] VITALS: Ht 160 cm; Wt 60.0 kg
[2018-10-20 13:04] LABS: HEMATOCRIT 37.4 % (42.0-52.0); HEMOGLOBIN 12.4 g/dl (13.5-17.5); MEAN CORPUSCULAR HEMOGLOBIN 29.4 pg (27.0-33.0); MEAN CORPUSCULAR HGB CONC 33.2 g/dl (32.0-36.5); MEAN CORPUSCULAR VOLUME 88.6 fl (80.0-96.0); PLATELET COUNT, AUTOMATED 251 10^3/uL (150-450); RED BLOOD COUNT 4.22 10^6/uL (4.30-6.10); WHITE BLOOD COUNT 10.4 10^3/uL (4.0-10.0)
[2018-10-20 13:31] LABS: CALCIUM LEVEL 7.8 MG/DL (8.8-10.2); CREATININE FOR GFR 1.22 MG/DL (0.70-1.30); GLOMERULAR FILTRATION RATE 59.8 (>35); POTASSIUM SERUM 3.9 MEQ/L (3.5-5.1)
--- NOTE | 2018-10-20 14:19 | REP ---
RIGHT TOES: 10/20/2018. CLINICAL HISTORY: Open wounds. FINDINGS: No prior study. Four views show swelling about the great toe with lucency in the distal pad of the great toe and also along the anterior aspect of the distal 1st metatarsal suggesting an open wound or ulceration. There are degenerative changes at multiple IP and MTP joints without definite destructive change that would clearly define osteomyelitis. I do not see pattern of definite lucencies that would be highly suggestive of subcutaneous emphysema but with swelling present, cellulitis can be suspected. IMPRESSION: 1. Degenerative changes at IP and MTP joints with some soft tissue swelling over the great toe more than elsewhere in the foot and also at the plantar aspect of the 1st MTP joint. Lucencies in the distal pad of the great toe and plantar aspect of the foot near the distal head of the 1st metatarsal suggest ulceration or laceration. Cellulitis may be suspected. Limited evaluation of the toes only. No foreign body. Electronically Signed by Trav Hutchison MD 10/20/2018 05:00 P
--- NOTE | 2018-10-20 14:21 | REP ---
Duplex extremity venous ultrasound: Right lower extremity. History: Right calf pain times several months. Findings: The deep veins are anechoic and fully compressible from the groin to the popliteal fossa in the right lower extremity. Color flow imaging is homogeneous. Spectral Doppler interrogation demonstrates intact respiratory variation in flow and normal manual augmentation of flow. There is no evidence of deep vein thrombosis. Impression: Negative right lower extremity duplex venous ultrasound. No evidence of deep vein thrombosis. Electronically Signed by Srikanth Sethi MD 10/20/2018 02:13 P
[2018-10-20] MEDS ORDERED: CLEO300C2 PO (14:25)
[2018-10-20 14:32] VITALS: BP 134/64
== END 2018-10-20 14:37 | disposition home or self-care (01) ==
LOC: M ED 12:21
DX: L03.031 Cellulitis of right toe (principal); I10 Essential (primary) hypertension; R56.9 Unspecified convulsions; Z79.899 Other long term (current) drug therapy; Z87.891 Personal history of nicotine dependence

== ENCOUNTER 2018-11-15 08:54 | Outpatient (CLI) | payer MEDICARE ==
[~2018-11-15] VITALS: Ht 160 cm; Wt 63.9 kg
[~2018-11-15 08:54] MED LIST changes: +CLEO300C2 PO
[2018-11-15 09:03] VITALS: BP 144/68
[2018-11-15] MEDS ORDERED: VEDOLIZUMAB 300 MG in NS 250 ML IV ONE (10:00)
[2018-11-15 10:20] VITALS: BP 135/61
== END 2018-11-15 10:20 | disposition home or self-care (01) ==
LOC: M INFU 08:54
PROVIDERS: ATTEND Internal Medicine Gastroenterology
DX: K50.919 Crohn's disease, unspecified, with unspecified complications (principal); Z79.899 Other long term (current) drug therapy
CPT/HCPCS: 96365; J3380

== ENCOUNTER → 2018-12-04 | Outpatient (CLI) | payer MEDICARE ==
--- NOTE | 2018-12-18 16:42 | REP ---
BILATERAL LOWER EXTREMITY DOPPLER ARTERIAL ULTRASOUND: 12/04/2018. Clinical history: Peripheral vascular disease. No prior study. Findings: The right brachial pressure 155 and SCARFER 167 with HALEY 1.08. The left brachial pressure 147 and dorsalis pedis 175, SCARFER 179. HALEY 1.2. Right lower extremity: Peak systolic velocity: Phasicity:SHUTTLER CAR: 111.2 cm/S biphasicProfunda 263.9 cm/S monophasicSFA proximal: Occluded.SFA mid: 120 cm/S monophasicSFA distal: 20.1 cm/S monophasicPopliteal: 25.7 cm/S monophasicATA proximal: 36.9 cm/S monophasicTibioperoneal trunk: 32.9 cm/S monophasicPTA proximal: 38.9 cm/S monophasicPTA distal: 38 cm/S monophasicATA distal: 8.6 cm/S monophasic Left lower extremity: Peak systolic velocity: Phasicity:SHUTTLER CAR: 110 cm/S biphasicProfunda: 91.5 cm/S biphasicSFA proximal: 41 - 68.7 cm/S biphasicSFA mid: 50 - 99 cm/S biphasicSFA distal: 137 - 101.5 cm/S biphasicPopliteal: 99.3 cm/S biphasicATA proximal: 37.2 cm/S biphasicTibioperoneal trunk: 39.7 cm/S biphasicPTA proximal: 28.3 cm/S biphasicPTA distal: 11.6 cm/S biphasicATA distal: 40.9 cm S biphasic There are significant stenoses noted bilaterally with mixed and calcific plaque bilaterally. The right proximal SFA is occluded with weak vascularization in its mid course. More revascularizations are noted on the right than the left. There is calcific plaque at the profunda right greater than left and significant stenosis from the left mid to distal SFA. There is decreased flow in the right MELVIN distally and left SCARFER distally. Please note this study is presented for my initial review on the date of this dictation, an earlier dictation could not be retrieved from the voice bank. Electronically Signed by Trav Hutchison MD 12/18/2018 08:03 P
== END ==
LOC: M RAD 11:20
PROVIDERS: ATTEND Surgery Vascular Surgery
DX: I73.9 Peripheral vascular disease, unspecified (principal)

== ENCOUNTER → 2018-12-08 | Outpatient (CLI) | payer MEDICARE ==
[2018-12-08 15:31] LABS: CREATININE FOR GFR 1.39 MG/DL (0.70-1.30); GLOMERULAR FILTRATION RATE 51.3 (>35)
== END ==
LOC: M LAB 14:28
PROVIDERS: ATTEND Neurological Surgery
DX: Z13.89 Encounter for screening for other disorder (principal); D32.9 Benign neoplasm of meninges, unspecified; I10 Essential (primary) hypertension

== ENCOUNTER → 2018-12-15 | Outpatient (REF) | payer MEDICARE | LOC: M LAB REF 12:26 | PROVIDERS: ATTEND Nurse Practitioner Family | DX: M79.671 Pain in right foot (principal); L89.890 Pressure ulcer of other site, unstageable ==

== ENCOUNTER → 2019-01-09 | Outpatient (CLI) | payer MEDICARE ==
[~2019-01-09] MED LIST changes: +BUPIVACAINE HCL 0.5% 10 ML VIAL As Ordered ONE; +CLOT1CRE27 TOP; -CLOTR1CR TOP; +HEPARIN 1,000 UNITS/ML 10ML VIAL (FOR RADIOLOGY& DIALYSIS ONLY) As Ordered ONE; +ISOVUE-300 61% 100ML VIAL (Q9967) As Ordered ONE; +LIDOCAINE 2% MDV 20 ML VIAL As Ordered ONE; +MIDAZOLAM INJ 2 MG/2 ML VIAL (J2250) As Ordered ONE; +PROTAMINE SULF INJ 50 MG/5 ML VIAL (J2720) As Ordered ONE; +diphenhydrAMINE INJ 50MG/ML VIAL (J1200) As Ordered ONE; +fentaNYL 100 MCG/2 ML INJECTION (J3010) As Ordered ONE
[2019-01-09 08:58] LABS: HEMATOCRIT 41.2 % (42.0-52.0); HEMOGLOBIN 13.2 g/dl (13.5-17.5); MEAN CORPUSCULAR HEMOGLOBIN 30.2 pg (27.0-33.0); MEAN CORPUSCULAR VOLUME 94.3 fl (80.0-96.0); PLATELET COUNT, AUTOMATED 247 10^3/uL (150-450); RED BLOOD COUNT 4.37 10^6/uL (4.30-6.10); WHITE BLOOD COUNT 12.8 10^3/uL (4.0-10.0)
[2019-01-09 09:13] LABS: CALCIUM LEVEL 8.3 MG/DL (8.8-10.2); CREATININE FOR GFR 1.44 MG/DL (0.70-1.30); GLOMERULAR FILTRATION RATE 49.3 (>35); POTASSIUM SERUM 5.7 MEQ/L (3.5-5.1)
--- NOTE | 2019-01-09 15:45 | ROOPDOC ---
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 PROCEDURE: PROCEDURE: Abdominal aortogram Pelvic aortogram and bilateral iliofemoral angiogram Selective right common femoral artery catheter placement with right lower extremity angiogram. Selective right profunda femoris femoral artery catheter placement with right lower extremity angiogram. Left common femoral arteriotomy closure with a Mynx closure device. SURGEON: Dr. Jacek Umanzor M.D. WASTE MANAGEMENT SPECIALIST: Nae Raymond INDICATION: Patient is a . Patient was evaluated and recommendation was to undergo an angiogram with possible angioplasty, stent and/or arthrectomy. The procedure was described and explained in detail to the patient including drawing of pictures demonstrating the procedure and pertinent anatomy. Risks, benefits and alternative treatment options were discussed with the patient. Alternative treatment options included but were not limited to no intervention. Benefits include but were not limited to evaluation of arterial inflow to the lower extremities with possible intervention improving blood flow to the lower extremities. Risks included but were not limited to infection, bleeding, renal failure requiring hemodialysis, retroperitoneal hematoma, possible need for surgical intervention, possible requirement for transfusion of blood products, contrast dye reaction, allergic reaction and/or complication from the prepping and draping materials, sedation related complication, scarring of the skin, bruising, nerve injury, anesthetic complications, cerebrovascular accident, myocardial infarction, pulmonary embolus, deep venous thrombosis, loss of limb, loss of life, poor satisfaction and poor outcome. Risks of not performing the procedure included but were not limited to worsening of current symptoms, worsening of atherosclerotic arterial occlusive disease resulting in possible limb loss and . Patient's questions were answered. Patient voices understanding of these risks, benefits and alternative treatment options. Patient voices acceptance of the risks associated with angiography with possible angioplasty, stent and/or atherectomy and agrees to proceed with the procedure excepting the associated risks of the procedure. No guarantees or promises were made to the patient or his family regarding the results or outcome of the procedure. ANESTHESIA: Local mL of 2% lidocaine. SEDATION TIME: [The sedation was administered by . The cardiopulmonary monitoring during sedation was performed by . Administration of sedation and cardiopulmonary monitoring were performed under my direct supervision and direction. I was present for and directed the entire case. There were no sedation related complications. Patient was stable post sedation and returned to pre-sedation status. FLUORO TIME: minutes CONTRAST: mL of Isovue 300 IVF: mL ESTIMATED BLOOD LOSS: mL. HEPARIN: PROTAMINE: [None] COMPLICATIONS: None DRAINS: None SPECIMENS: None IMPLANTS: Left common femoral arteriotomy closure with a [5] English minx closure device PROCEDURE: The patient was taken to the angiography suite, placed supine on the angiography room table and prepped and draped in a standard surgical fashion. A procedural time out was performed by myself and the members of the team in the procedure room confirming the correct procedure, patient and laterality. The left common femoral artery was then cannulated with a micropuncture needle after anesthetizing the overlying skin and subcutaneous tissue with 2% lidocaine. The micropuncture wire was advanced through the micropuncture needle which was upsized to a micropuncture sheath. The Perez wire was then advanced through the micropuncture sheath which was upsized to a 5 English sheath. The Omni flush catheter was advanced over the Perez wire placed in the aorta at the level of the diaphragm and an abdominal aortogram was performed. The catheter was pulled down in the aorta to above the bifurcation of the iliac arteries and the pelvic aortogram and bilateral iliofemoral angiogram was performed. The catheter was then directed over the bifurcation of the iliac arteries using the Perez wire and placed in the right common femoral artery selectively and a right lower ex tremity angiogram was performed. This demonstrated . [The catheter was then advanced into the right superficial femoral artery selectively as far distal as possible, using the Perez wire, and a selective right lower extremity selective superficial femoral artery angiogram was performed.] This demonstrated . [The catheter and wire were then advanced into the popliteal artery and a right selective popliteal artery angiogram was performed.] The arteriotomy in the left common femoral artery was closed using a [5] English Mynx closure device with an additional 10 min. of adjunctive pressure applied for hemostasis, which was noted. Dressings were then applied. Patient tolerated the procedure well. There were no complications. Dr. Umanzor was present for and directed the entire case. The patient was transferred to the holding area . RADIOLOGIC SUPERVISION AND INTERPRETATION: Abdominal aortogram: [The aorta was widely patent with good filling of lumbar vessels. The superior mesenteric and celiac artery were widely patent with no stenosis noted.] Pelvic aortogram and bilateral iliofemoral angiogram: Selective right common femoral artery angiogram: The selective right common femoral artery catheter angiogram showed the right common femoral artery to be p atent . Selective right superficial femoral artery angiogram: The selective right superficial femoral artery angiogram showed . Intervention: [None] A [5] English Mynx closure device was used to close the arteriotomy in the left common femoral artery. Chino Umanzor MD Jan 09, 2019 15:45
== END | disposition home or self-care (01) ==
LOC: M IRPRO 08:10
PROVIDERS: ATTEND Surgery Vascular Surgery
DX: I70.211 Atherosclerosis of native arteries of extremities with intermittent claudication, right leg (principal); I70.92 Chronic total occlusion of artery of the extremities; I12.9 Hypertensive chronic kidney disease with stage 1 through stage 4 chronic kidney disease, or unspecified chronic kidney disease; N18.3 Chronic kidney disease, stage 3 (moderate); Z87.891 Personal history of nicotine dependence
CPT/HCPCS: 36247; 36415; 75625; 75710; 75774; 80048; 84132; 85027; C1760; C1769; C1887; C1894; G0269; J1200; Q9967

== ENCOUNTER 2019-01-10 08:54 | Outpatient (CLI) | payer MEDICARE ==
[~2019-01-10] VITALS: Ht 160 cm; Wt 83.0 kg
[~2019-01-10 08:54] MED LIST changes: -BUPIVACAINE HCL 0.5% 10 ML VIAL As Ordered ONE; -HEPARIN 1,000 UNITS/ML 10ML VIAL (FOR RADIOLOGY& DIALYSIS ONLY) As Ordered ONE; -ISOVUE-300 61% 100ML VIAL (Q9967) As Ordered ONE; -LIDOCAINE 2% MDV 20 ML VIAL As Ordered ONE; -MIDAZOLAM INJ 2 MG/2 ML VIAL (J2250) As Ordered ONE; -PROTAMINE SULF INJ 50 MG/5 ML VIAL (J2720) As Ordered ONE; -diphenhydrAMINE INJ 50MG/ML VIAL (J1200) As Ordered ONE; -fentaNYL 100 MCG/2 ML INJECTION (J3010) As Ordered ONE
[2019-01-10 09:00] VITALS: BP 133/60
[2019-01-10] MEDS ORDERED: VEDOLIZUMAB 300 MG in NS 250 ML IV ONE (10:00)
[2019-01-10 10:20] VITALS: BP 154/65
== END 2019-01-10 10:20 | disposition home or self-care (01) ==
LOC: M INFU 08:54
PROVIDERS: ATTEND Internal Medicine Gastroenterology
DX: K50.90 Crohn's disease, unspecified, without complications (principal)
CPT/HCPCS: 96365; J3380

== ENCOUNTER 2019-03-02 10:45 | Inpatient (IN) | payer MEDICARE ==
[~2019-03-02] VITALS: Ht 160 cm; Wt 58.5 kg
[2019-05-01] MEDS ORDERED: VITAD1000T PO (14:55)
[2019-05-01] MEDS ORDERED: NORC1TAB7 PO (14:55)
[2019-05-01] MEDS ORDERED: B-122500 PO (14:55)
[2019-05-01] MEDS ORDERED: ECOT81TA5 PO (15:00)
[2019-05-02] MEDS ORDERED: VITAD1000T PO (09:03)
[2019-05-02] MEDS ORDERED: B-122500 PO (09:03)
[2019-05-04] VITALS (8 sets, daily range): BP systolic 119–152; BP diastolic 50–69
[2019-05-04 07:43] LABS: HEMATOCRIT 38.5 % (42.0-52.0); HEMOGLOBIN 12.4 g/dl (13.5-17.5); MEAN CORPUSCULAR HEMOGLOBIN 29.2 pg (27.0-33.0); MEAN CORPUSCULAR HGB CONC 32.2 g/dl (32.0-36.5); MEAN CORPUSCULAR VOLUME 90.6 fl (80.0-96.0); PLATELET COUNT, AUTOMATED 249 10^3/uL (150-450); RED BLOOD COUNT 4.25 10^6/uL (4.30-6.10); WHITE BLOOD COUNT 14.7 10^3/uL (4.0-10.0)
[2019-05-04 08:05] LABS: CALCIUM LEVEL 8.9 MG/DL (8.8-10.2); CREATININE FOR GFR 1.31 MG/DL (0.70-1.30); POTASSIUM SERUM 3.9 MEQ/L (3.5-5.1)
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
[2019-05-04] MEDS ORDERED: LIDOCAINE 1% SDV INJ 30 ML VIAL As Ordered ONE (08:46)
[2019-05-04] MEDS ORDERED: HEPARIN SOD (PORCINE) 5000 UNITS/ML VIAL As Ordered ONE ×2 (08:46→09:55)
[2019-05-04] MEDS ORDERED: THROMBIN SOLN 20,000 UNITS KIT As Ordered ONE (08:46)
[2019-05-04] MEDS ORDERED: BUPIVACAINE HCL 0.5% 30 ML VIAL As Ordered ONE (08:46)
[2019-05-04] MEDS ORDERED: ROCURONIUM BROMIDE 50 MG/5 ML VIAL As Ordered ONE (08:52)
[2019-05-04] MEDS ORDERED: LIDOCAINE 2% INJ 100 MG/5 ML SDV (FOR ANES.) As Ordered ONE (08:52)
[2019-05-04] MEDS ORDERED: PROPOFOL 200 MG/20 ML VIAL As Ordered ONE ×2 (08:52→09:41)
[2019-05-04] MEDS ORDERED: fentaNYL 250 MCG/5 ML INJECTION (J3010) As Ordered ONE (08:52)
[2019-05-04] MEDS ORDERED: MIDAZOLAM INJ 2 MG/2 ML VIAL (J2250) As Ordered ONE (08:52)
[2019-05-04] MEDS ORDERED: ceFAZolin 2 GM/D5W 50 ML IV BAG (J0690 PER 500MG) As Ordered ONE (09:23)
[2019-05-04] MEDS ORDERED: oxyCODONE 5MG TAB PO PRN (11:00)
[2019-05-04] MEDS ORDERED: fentaNYL 100 MCG/2 ML INJECTION (J3010) IV PRN (11:00)
[2019-05-04] MEDS ORDERED: MOM 30ML SUSPENSION UDC PO PRN (11:00)
[2019-05-04] MEDS ORDERED: ONDANSETRON 4MG/2ML VIAL (J2405) IV PRN ×2 (11:00)
[2019-05-04] MEDS ORDERED: BISACODYL 10 MG SUPP PR PRN (11:00)
[2019-05-04] MEDS ORDERED: LR 1,000 ML IV SCH (11:00)
--- NOTE | 2019-05-04 11:31 | ROOPDOC ---
[facility] Report Of Operation Report of Operation DATE OF PROCEDURE: 05/04/2019 PREOPERATIVE DIAGNOSES: Right lower extremity claudication. Right first toe ulcer nonhealing. 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 Tobacco use with continued cigarette smoking. Crohn's disease POSTOPERATIVE DIAGNOSES: Right lower extremity claudication. Right first toe ulcer nonhealing. 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 Tobacco use with continued cigarette smoking. Crohn's disease PROCEDURE: Right external iliac artery endarterectomy. Right common femoral artery endarterectomy. Right profunda femoris artery endarterectomy. Right superficial femoral artery endarterectomy. Patch angioplasty with Xenosure biologic patch of the right external iliac artery, common femoral artery and superficial femoral artery arteriotomy. SURGEON: Dr. Jacek Umanzor M.D. BELT SANDER: None INDICATION: Patient is and 88-year-old male with claudication and pain in his right lower extremity with a nonhealing right first toe ulcer and previous right foot cellulitis. And extensive continued tobacco use. Patient underwent an angiogram which showed occlusion of his right superficial femoral artery. There was also atherosclerotic occlusive disease in his external iliac artery as well as his profunda femoris artery. There was reconstitution of the popliteal artery in the above knee region via collaterals from the profunda femoris artery. The common femoral, superficial femoral and profunda femoris artery atherosclerotic occlusive disease was not amenable to endovascular repair and the recommendation was for the patient to undergo a femoral endarterectomy with patch angioplasty, with possible femoral to popliteal artery bypass grafting. The procedure was described and explained in detail to the patient and his daughters including drawing of pictures demonstrating the procedure and pertinent anatomy. Risks, benefits and alternative treatment options were discussed with the patient and his daughter Julee and his son Jhonathan in the preoperative holding area. Alternative treatment options included but were not limited to no intervention. Benefits include but were not limited to removal of plaque from the femoral arteries with improved blood flow to the right lower extremity. Risks included but were not limited to infection, bleeding, renal failure requiring hemodialysis, retroperitoneal hematoma, possible need for further surgical intervention, possible need for bypass grafting, possible req uirement for transfusion of blood products, allergic reaction and/or complication from the prepping and draping materials, sedation related complication, scarring , bruising, nerve injury, anesthetic complications, cerebrovascular accident, myocardial infarction, pulmonary embolus, deep venous thrombosis, loss of limb, loss of life, poor satisfaction and poor outcome. Risks of not performing the procedure included but were not limited to worsening of current symptoms, worsening of atherosclerotic arterial occlusive disease resulting in possible limb loss and . Patient's questions were answered. Patient voices understanding of these risks, benefits and alternative treatment options. Patient voices acceptance of the risks associated with the procedure and agrees to proceed excepting the associated risks of the procedure. No guarantees or promises were made regarding the results or outcome of the procedure. The patient signed the consent in the preoperative holding area after all questions were answered from the patient himself, and his daughters. I discussed with the patient and his family in detail that continued tobacco use will result in failure of the endarterectomy and worsening of her underlying atherosclerotic arterial occlusive disease with probable limb loss in the future. ANESTHESIA: Local Mac. ESTIMATED BLOOD LOSS: 100 mL. IV FLUIDS: 400 mL. HEPARIN: 7000 units PROTAMINE: None COMPLICATIONS: None DRAINS: None SPECIMENS: Right External iliac artery, common femoral artery, profunda femoris artery and superficial femoral arterial plaque. PROCEDURE: Patient was taken to the operating room, placed supine on the operating room table and the patient was prepped and draped in a standard surgical fashion. A surgical time out confirming the correct patient, procedure and laterality was then performed by myself and the team members within the operating room. An incision was then made obliquely in the inguinal region overlying the right femoral artery. The dissection was carried down to the common femoral artery which was identified and sharply dissected proximally and distally. The profunda femoris and superficial femoral artery were also identified and sharply dissected free. These vessels were then encircled with vessel loops. Patient was given heparin for systemic anticoagulation. The common femoral artery was clamped using a Satinsky clamp. The superficial femoral and profunda femoris arteries were clamped using profunda clamps. An arteriotomy was then created using an 11 blade scalpel. The arteriotomy was elongated using pot scissors proximally into the common femoral artery and distally through the common femoral artery into the superficial femoral artery. The femoral endarterectomy was then performed with removal of plaque from the common femoral artery, superficial femoral artery and profunda femoris arteries. There was severe calcific at the saccadic arterial occlusive disease and plaque in the common femoral, superficial femoral and profunda femoris is arteries with complete occlusion of the common femoral artery in the midportion. There was good back bleeding noted from the superficial femoral and profunda femoris arteries after the endarterectomy. The in the flow through the common femoral artery was suboptimal. The dissection was carried up higher under the inguinal ligament exposing the right external iliac artery which was then encircled with a vessel loop. The external iliac artery was clamped with a Satinsky clamp. The arteriotomy was extended from the common femoral into the external iliac artery. Endarterectomy was then performed of the right external iliac artery. There was severe calcific atherosclerotic arterial occlusive disease noted in the distal external iliac artery. There was good arterial inflow after completion of the right external iliac artery endarterectomy. The arteriotomy was closed using a Xenosure biologic patch and 6-0 Prolene suture in running continuous fashion. The external iliac artery was flushed antegrade. The superficial femoral artery and profunda femoris artery were flushed retrograde. The arteriotomy was irrigated with heparinized saline. The arteriotomy closure was completed. Flow was reestablished through the external iliac artery into the common femoral artery, superficial femoral and profunda femoris arteries. Continuous wave Doppler was used to evaluate the flow through the external iliac artery common femoral artery, superficial femoral and profunda femoris arteries which was noted to be good. Hemostasis was obtained using interrupted 6-0 Prolene sutures and thrombin and Gelfoam. The incision was then closed using 2- 0 Vicryl approximate the femoral sheath and deeper layers. 2-0 Prolene suture was then used to approximate the subcutaneous tissue. The skin was then closed using 3-0 Monocryl in a running subcuticular fashion. Steri-Strips and dressings were applied. All instruments sponge and needle counts were correct at the end of the case. There were no complications. Dr. Umanzor was present for and directed the entire case. Patient was transferred to the recovery room awake, alert and extubated. The results of the procedure were explained and described to the patient in the recovery room. The results of the procedure were explained and described to the patient's family in the surgical waiting room postoperatively. I again discussed with the patient and his family the need to stop tobacco use. Chino Umanzor MD May 04, 2019 11:31
[2019-05-04] MEDS: PANTOPRAZOLE 40MG TAB (PROTONIX) PO SCH (13:05)
[2019-05-04] MEDS: LISINOPRIL 20 MG TAB PO SCH (13:05)
[2019-05-04] MEDS: NORCO, ANEXSIA 5/325MG TABLET (HYDROcodone/ACETAMINOPHEN) PO PRN (19:39)
[2019-05-04] MEDS: SENOKOT S TAB PO SCH (21:00)
[2019-05-04] MEDS: DOCUSATE SODIUM 100 MG CAP PO SCH (21:00)
[2019-05-05 02:00] VITALS: BP 134/70
[2019-05-05] MEDS: NORCO, ANEXSIA 5/325MG TABLET (HYDROcodone/ACETAMINOPHEN) PO PRN (02:28)
[2019-05-05 06:00] VITALS: BP 132/69
[2019-05-05] MEDS ORDERED: LIDOCAINE 1% MDV 20ML VIAL SQ PRN (06:00)
[2019-05-05] MEDS ORDERED: LR 1,000 ML IV ONE (06:00)
[2019-05-05] MEDS: LISINOPRIL 20 MG TAB PO SCH (08:43)
[2019-05-05] MEDS: PANTOPRAZOLE 40MG TAB (PROTONIX) PO SCH (08:43)
[2019-05-05 08:45] VITALS: BP 150/60
[2019-05-05] MEDS: SENOKOT S TAB PO SCH (09:00)
[2019-05-05] MEDS ORDERED: MAGNESIUM CHLORIDE 64 MG TABCR (SLO MAG) PO SCH ×2 (09:00)
[2019-05-05] MEDS ORDERED: CYANOCOBALAMIN 500 MCG TAB PO SCH (09:00)
[2019-05-05] MEDS ORDERED: ASPIRIN 81 MG ENTERIC TAB PO SCH (09:00)
[2019-05-05] MEDS: DOCUSATE SODIUM 100 MG CAP PO SCH (09:00)
[2019-05-05] MEDS ORDERED: VITAMIN D 1,000 INTERNATIONAL UNITS TABLET PO SCH (09:00)
[2019-05-05 10:00] VITALS: BP 130/60
[2019-05-05] MEDS ORDERED: HYDR-4571 PO (11:03)
[2019-05-05] MEDS ORDERED: COLA100C5 PO (11:03)
== END 2019-05-05 11:52 | disposition home or self-care (01) | DRG 271 ==
LOC: M OR 05-04 07:04 → M MSPAV 05-04 12:04
PROVIDERS: ADMIT Surgery Vascular Surgery; ATTEND Surgery Vascular Surgery
PROC: 3E033GC Introduction of Other Therapeutic Substance into Peripheral Vein, Percutaneous Approach (ICD-10-PCS; 2019-05-02)
PROC: 04CK0ZZ Extirpation of Matter from Right Femoral Artery, Open Approach (ICD-10-PCS; 2019-05-04)
PROC: 04UK0JZ Supplement Right Femoral Artery with Synthetic Substitute, Open Approach (ICD-10-PCS; 2019-05-04)
PROC: 04UH0JZ Supplement Right External Iliac Artery with Synthetic Substitute, Open Approach (ICD-10-PCS; 2019-05-04)
PROC: 04CH0ZZ Extirpation of Matter from Right External Iliac Artery, Open Approach (ICD-10-PCS; principal; 2019-05-04 08:45)
DX: I70.211 Atherosclerosis of native arteries of extremities with intermittent claudication, right leg (principal); K50.90 Crohn's disease, unspecified, without complications; I25.10 Atherosclerotic heart disease of native coronary artery without angina pectoris; F17.200 Nicotine dependence, unspecified, uncomplicated; E78.5 Hyperlipidemia, unspecified; M10.9 Gout, unspecified; N18.3 Chronic kidney disease, stage 3 (moderate); I34.0 Nonrheumatic mitral (valve) insufficiency; K21.9 Gastro-esophageal reflux disease without esophagitis; I12.9 Hypertensive chronic kidney disease with stage 1 through stage 4 chronic kidney disease, or unspecified chronic kidney disease; Z79.899 Other long term (current) drug therapy; Z79.82 Long term (current) use of aspirin

== ENCOUNTER 2019-03-07 08:40 | Outpatient (CLI) | payer MEDICARE ==
[~2019-03-07] VITALS: Ht 160 cm; Wt 83.0 kg
[2019-03-07 08:45] VITALS: BP 178/81
[2019-03-07] MEDS ORDERED: VEDOLIZUMAB 300 MG in NS 250 ML IV ONE (09:00)
[2019-03-07 10:00] VITALS: BP 177/79
== END 2019-03-07 10:00 | disposition home or self-care (01) ==
LOC: M INFU 08:40
PROVIDERS: ATTEND Internal Medicine Gastroenterology
DX: K50.90 Crohn's disease, unspecified, without complications (principal); Z79.899 Other long term (current) drug therapy
CPT/HCPCS: 96365; J3380

== ENCOUNTER 2019-05-02 08:36 | Outpatient (CLI) | payer MEDICARE ==
[~2019-05-02] VITALS: Ht 158.8 cm; Wt 58.7 kg
[~2019-05-02 08:36] MED LIST changes: +B-122500 PO; +ECOT81TA5 PO; +NORC1TAB7 PO; +VITAD1000T PO
[2019-05-02 08:40] VITALS: BP 168/72
[2019-05-02] MEDS ORDERED: VITAD1000T PO (09:03)
[2019-05-02] MEDS ORDERED: B-122500 PO (09:03)
[2019-05-02] MEDS ORDERED: VEDOLIZUMAB 300 MG in NS 250 ML IV ONE (09:30)
[2019-05-02 10:10] VITALS: BP 118/62
== END 2019-05-02 10:10 | disposition home or self-care (01) ==
LOC: M INFU 08:36
PROVIDERS: ATTEND Internal Medicine Gastroenterology
DX: K50.90 Crohn's disease, unspecified, without complications (principal); Z79.899 Other long term (current) drug therapy

== ENCOUNTER → 2019-06-18 | Outpatient (CLI) | payer MEDICARE ==
[~2019-06-18] MED LIST changes: +AMLO2.5T3 PO; +CHOL100029 PO; +COLA100C5 PO; +HYDR-4571 PO; +LISI-538 PO; +PANT-23 PO; -VITAD1000T PO
--- NOTE | 2019-06-19 07:18 | REP ---
BILATERAL LOWER EXTREMITY DUPLEX DOPPLER ARTERIAL ULTRASOUND: Real-time ultrasound evaluation and duplex Doppler interrogation of bilateral lower extremity arterial system is performed. HALEY right is 0.7 and left 1.0. There is significant plaquing throughout the right superficial femoral artery. There is moderate diffuse plaquing elsewhere bilaterally. There is multifocal stenoses and occlusions throughout the proximal to mid right superficial femoral artery with reconstitution distally via collateral vessels. Mild phasic waveforms are seen diffusely throughout the right lower extremity except for biphasic waveforms in the distal right superficial femoral artery and popliteal artery. There are diffusely biphasic waveforms in the left lower extremity arterial system. Right Peak Left Peak Systolic Velocity Systolic velocity Common femoral artery 118.6 cm/s 95.4 cm/s Profunda 97.4 cm/s 128.1 cm/s Proximal SFA 13.7 cm/s 49.2 cm/s Mid SFA occluded /37.1 cm/s 88.7 cm/s Distal SFA 28.2 cm/s 177.0 cm/s Popliteal 28.4 cm/s 99.6 cm/s Proximal MELVIN 23.5 cm/s 30.1 cm/s Tibial peroneal trunk 18.8 cm/s 52.9 cm/s Proximal JACKAROO 39.1 cm/s 82.0 cm/s Distal JACKAROO 18.9 cm/s 52.8 cm/s Distal MELVIN 49.7 cm/s 70.5 cm/s IMPRESSION: Significant plaquing and narrowing right superficial femoral artery with multifocal stenoses and occlusions, with reconstitution of the distal right SFA via collateral vessels. Electronically Signed by Dimitri Garduno MD 06/20/2019 10:07 A
== END ==
LOC: M RAD 11:56
PROVIDERS: ATTEND Physician Assistant
DX: I70.213 Atherosclerosis of native arteries of extremities with intermittent claudication, bilateral legs (principal)

== ENCOUNTER 2019-06-27 09:21 | Inpatient (IN) | payer MEDICARE ==
[~2019-06-27] VITALS: Ht 160 cm; Wt 59.6 kg
[~2019-06-27 09:21] MED LIST changes: -AMLO2.5T3 PO; -CIPR-250 PO; -LISI-538 PO; -PANT-23 PO; -VEDOLIZUMAB 300 MG in NS 250 ML IV ONE
[2019-06-27 10:06] LABS: VENOUS BASE EXCESS -11.1 (-2.0-2.0); VENOUS HCO3 17.1 MEQ/L (23.0-27.0); VENOUS O2 SATURATION 64.5 % (60.0-80.0); VENOUS PARTIAL PRESSURE CO2 47.1 mmHg (38.0-50.0); VENOUS PARTIAL PRESSURE O2 40.3 mmHg (30.0-50.0); VENOUS PH 7.179 UNITS (7.330-7.430); VENOUS STANDARD HCO3 15.2 MEQ/L; VENOUS TOTAL CO2 18.6 MEQ/L (24.0-28.0)
[2019-06-27 10:10] LABS: BASO # 0.1 10^3/uL (0.0-0.2); BASO % 0.4 % (0.0-1.0); EOS # 0.1 10^3/uL (0.0-0.5); EOS % 0.6 % (0.0-3.0); HEMOGLOBIN 14.1 g/dl (13.5-17.5); LYMPH # 2.2 10^3/uL (1.5-5.0); LYMPH % 11.7 % (24.0-44.0); MEAN CORPUSCULAR HEMOGLOBIN 28.7 pg (27.0-33.0); MEAN CORPUSCULAR HGB CONC 32.8 g/dl (32.0-36.5); MEAN CORPUSCULAR VOLUME 87.6 fl (80.0-96.0); MONO # 1.5 10^3/uL (0.0-0.8); MONO % 7.9 % (0.0-5.0); NEUTROPHILS # 14.9 10^3/uL (1.5-8.5); NEUTROPHILS % 78.6 % (36.0-66.0); PLATELET COUNT, AUTOMATED 340 10^3/uL (150-450); RED BLOOD COUNT 4.91 10^6/uL (4.30-6.10)
[2019-06-27] MEDS ORDERED: NS 500 ML IV ONE (10:15)
[2019-06-27 10:47] LABS: ALT/SGPT 12 U/L (12-78); BILIRUBIN,DIRECT 0.2 MG/DL (0.0-0.2); BILIRUBIN,TOTAL 0.4 MG/DL (0.2-1.0); BLOOD UREA NITROGEN 64 MG/DL (7-18); CALCIUM LEVEL 7.6 MG/DL (8.8-10.2); CARBON DIOXIDE LEVEL 17 MEQ/L (21-32); CHLORIDE LEVEL 110 MEQ/L (98-107); CK-MB VALUE MASS 1.9 NG/ML (<3.6); CPK CREATINE PHOSPHOKINASE 56 U/L (39-308); CREATININE FOR GFR 9.43 MG/DL (0.70-1.30); GLOMERULAR FILTRATION RATE 5.6 (>35); GLUCOSE, FASTING 119 MG/DL (70-100); LIPASE 113 U/L (73-393); MB/CK RELATIVE INDEX 3.39 (< OR =4); NT-PRO BNP 2769 PG/ML (<450); POTASSIUM SERUM 3.8 MEQ/L (3.5-5.1); SODIUM LEVEL 142 MEQ/L (136-145); THYROXINE (T4) 10.8 UG/DL (4.5-12.0); TOTAL PROTEIN 6.9 GM/DL (6.4-8.2); TROPONIN I < 0.02 NG/ML (< 0.10)
--- NOTE | 2019-06-27 10:51 | REP ---
CHEST, SINGLE VIEW: Single view of the chest is performed and compared to a prior study of 07/06/2011. I see no definite acute infiltrate in either lung. The heart is normal in size. There is mild calcification of the thoracic aorta. The mediastinal silhouette is unchanged. Multiple metallic screws and metallic plate are seen in the right clavicle. IMPRESSION: No evidence of acute infiltrate. Electronically Signed by Dimitri Garduno MD 06/28/2019 04:40 P
[2019-06-27] MEDS ORDERED: NS 1,000 ML IV ONE (11:30)
[2019-06-27] MEDS ORDERED: LISI-538 PO (11:38)
[2019-06-27] MEDS ORDERED: PANT-23 PO (11:38)
[2019-06-27] MEDS ORDERED: AMLO2.5T3 PO (11:38)
[2019-06-27] MEDS ORDERED: CIPROFLOXACIN 400 MG in APPROPRIATE DILUENT 1 EA IV SCH (13:00)
[2019-06-27] MEDS ORDERED: NS 1,000 ML IV SCH (13:00)
[2019-06-27] MEDS ORDERED: metroNIDAZOLE 500 MG in APPROPRIATE DILUENT 1 EA IV SCH (13:00)
[2019-06-27] MEDS ORDERED: ACETAMINOPHEN TAB 650MG DOSE (2X325MG) PO PRN (13:00)
--- NOTE | 2019-06-27 13:12 | HPEPDOC ---
General Date of Admission 06/27/19 Date of Service: Jun 27, 2019 Primary Care Physician: EARLENE RITTER MD Attending Physician: YANIRA SHARMA MD Chief Complaint The patient is a 88-year-old male admitted with a reason for visit of Naus/Vom. Source: Patient, Family Exam Limitations: Mild cognitive slowing Timing/Duration: Other Severity: Moderate (5 days) Associated Symptoms: Nausea, Vomiting, Other (, diarrhea) History of Present Illness 88 years old white male who is a poor historian secondary to cognitive slowing The ED with his 2 daughters with chief complaints of nausea, vomiting and diarrhea since last 5 days. As per patient and his family, he started throwing up and having continuous diarrhea and vomiting since last 5 days. Patient denies any abdominal pain. No history of fever, shortness of breath, chest pain, etc. Patient does have a history of Crohn's disease, but as per him, these are not the same symptoms. Home Medications Scheduled Amlodipine Besylate (Amlodipine Besylate) 2.5 Mg Tablet, 2.5 MG PO DAILY, (Reported) Aspirin (Ecotrin) 81 Mg Tablet.dr, 81 MG PO DAILY, (Reported) Cyanocobalamin (Vitamin B-12) (Vitamin B12) 2,500 Mcg Tablet, 2,500 MCG PO DAILY, (Reported) Lisinopril (Lisinopril) 20 Mg Tablet, 20 MG PO DAILY, (Reported) Magnesium Chloride (Mag64) 64 Mg Tabcr, 1 TAB PO DAILY, (Reported) Pantoprazole Sodium (Pantoprazole Sodium) 40 Mg Tablet.dr, 40 MG PO DAILY, (Reported) Vedolizumab (Entyvio) 300 Mg Inj, 300 MG IV QMONTH, (Reported) WAS DUE TO RECEIVE 06/27/19 Vitamin D (Vitamin D3) 1,000 Unit Tablet, 2,000 UNITS PO DAILY, (Reported) Allergies Coded Allergies: No Known Allergies (Unverified , 05/01/19) Past Medical History Medical History Crohn's disease, hypertension, PVD Surgical History Cholecystectomy, brain tumor surgery, right leg PVD surgery, right shoulder surgery Family History Significant Family History: No pertinent family hx Social History * Smoker: current smoker, greater than 1 pack/day Alcohol: Denies Drugs: denies Recent Travel/Sick Contacts: Reports: Recent travel A-FIB/[facility] A-FIB History Current/History of A-Fib/PAF?: No Review of Systems Constitutional: Denies: Chills, Fever, Malaise, Night Sweats, Weakness, Fatigue, Weight Loss, Lethargy, Other Eyes: Denies: Pain, Vision change, Conjunctivae inflammation, Eyelid inflammation, Redness, Other ENT: Denies: Head Aches, Ear Pain, Dysphagia, Sinus Congestion, Post Nasal Drip, Sore Throat, Epistaxis, Other Symptoms Skin: Denies: Rash, Lesions, Jaundice, Bruising, Itching, Dry, Breakdown, Nail Changes, Other Cardiovascular: Denies: Chest Pain, Palpitations, Orthopnea, Paroxysmal Noc. Dyspnea, Edema, Lt Headedness, Other Symptoms Gastrointestinal: Reports: Nausea, Vomiting, Diarrhea Genitourinary: Denies: Dysuria, Frequency, Incontinence, Hematuria, Retention, Other Symptoms Hematologic: Denies: Bruising, Bleeding Excessively, Petecchia, Purpura, Enlarged Lymph Nodes, Other Hematologic Endocrine: Denies: Polydipsia, Polyphagia, Polyuria, Heat Intolerance, Cold Intolerance, Other Endocrine Sx Musculoskeletal: Denies: Neck Pain, Back Pain, Shoulder Pain, Arm Pain, Hand Pain, Leg Pain, Foot Pain, Joint Pain, Muscle Pain, Spasms, Other Symptoms Neurological: Denies: Weakness, Numbness, Incoordination, Change in speech, Confusion, Seizures, Other Symptoms Psych: Denies: Mood Normal, Anxiety, Depression, Memory Issues, Thoughts of Self Harm, Anger, Thoughts of Harming Other, Other Psych Physical Examination General Exam: Positive: Alert, Cooperative Eye Exam: Positive: PERRLA, Conjunctiva & lids normal ENT Exam: Positive: Atraumatic, Mucous membr. moist/pink Neck Exam: Positive: Supple Chest Exam: Positive: Clear to auscultation, Normal air movement Heart Exam: Positive: Rate Normal, Normal S1, Normal S2 Abdomen Exam: Positive: Normal bowel sounds, Soft Extremity Exam: Positive: Normal pulses Skin Exam: Positive: Nl turgor and temperature Neuro Exam: Positive: Strength at 5/5 X4 ext, Normal Tone, Sensation Intact Psych Exam: Positive: Mental status NL, Mood NL Vital Signs Vital Signs Date Time Temp Pulse Resp B/P (MAP) Pulse Ox O2 Delivery O2 Flow Rate FiO2 06/27/19 12:21 85 100 06/27/19 12:15 106/52 (70) 06/27/19 09:44 Room Air 06/27/19 09:21 96.9 20 Laboratory Data Labs 24H Laboratory Tests 2 06/27/19 09:51: Immature Granulocyte % (Auto) 0.8, White Blood Count 19.0H, Red Blood Count 4.91, Hemoglobin 14.1, Hematocrit 43.0, Mean Corpuscular Volume 87.6, Mean Corpuscular Hemoglobin 28.7, Mean Corpuscular Hemoglobin Concent 32.8, Red Cell Distribution Width 14.0, Platelet Count 340, Neutrophils (%) (Auto) 78.6H, Lymphocytes (%) (Auto) 11.7L, Monocytes (%) (Auto) 7.9H, Eosinophils (%) (Auto) 0.6, Basophils (%) (Auto) 0.4, Neutrophils # (Auto) 14.9H, Lymphocytes # (Auto) 2.2, Monocytes # (Auto) 1.5H, Eosinophils # (Auto) 0.1, Basophils # (Auto) 0.1, Nucleated Red Blood Cells % (auto) 0.0, Anion Gap 15, Glomerular Filtration Rate 5.6L, Calcium Level 7.6L, Aspartate Amino Transf (AST/SGOT) 9, Alanine Aminotransferase (ALT/SGPT) 12, Alkaline Phosphatase 108, Total Bilirubin 0.4, Direct Bilirubin 0.2, Total Creatine Kinase 56, Creatine Kinase MB 1.9, Creatine Kinase MB Relative Index 3.39, Troponin I < 0.02, IY-Naa-C-Type Natriuretic Peptide 2769H, Total Protein 6.9, Albumin 3.0L, Albumin/Globulin Ratio 0.77L, Lipase 113, Thyroid Stimulating Hormone (TSH) 1.320, Thyroxine (T4) 10.8 06/27/19 09:53: Blood Gas Bicarbonate Standard 15.2, Venous Blood pH 7.179L, Venous Blood Partial Pressure CO2 47.1, Venous Blood Partial Pressure O2 40.3, Venous Blood Total Carbon Dioxide 18.6L, Venous Blood HCO3 17.1L, Venous Blood Oxygen Saturation 64.5, Venous Blood Base Excess -11.1L, Lactic Acid Level 2.0 CBC/BMP Laboratory Tests 06/27/19 09:51 Red Blood Count 4.91, Mean Corpuscular Volume 87.6, Mean Corpuscular Hemoglobin 28.7, Mean Corpuscular Hemoglobin Concent 32.8, Red Cell Distribution Width 14.0, Neutrophils (%) (Auto) 78.6 H, Lymphocytes (%) (Auto) 11.7 L, Monocytes (%) (Auto) 7.9 H, Eosinophils (%) (Auto) 0.6, Basophils (%) (Auto) 0.4, Neutrophils # (Auto) 14.9 H, Lymphocytes # (Auto) 2.2, Monocytes # (Auto) 1.5 H, Eosinophils # (Auto) 0.1, Basophils # (Auto) 0.1 Problems (1) Acute kidney injury Status: Acute Problem Text: 88 years old white male with past medical history of hypertension, had developed nausea, vomiting, diarrhea since last 5 days. Patient doesn't history of Crohn's disease and hypertension for which he takes calcium genital yoan and IVORY inhibitor. Acute renal failure could be secondary to multiple factors including nausea, vomiting, diarrhea, and as well as ivory inhibitors. Will admit patient to MedSurg floor IV fluids normal saline 150 mL per hour Regular diet Activity as tolerated DVT prophylaxis with the heparin Will request nephrology consultation Further, as per nephrology recommendation Follow labs in a.m. (2) Diarrhea Status: Acute Problem Text: Diarrhea with nausea, vomiting. Patient doesn't history of Crohn's disease but has no abdominal pain. Patient does have elevated WBC count of 19,000, Itzel start Cipro and Flagyl. Considering infectious diarrhea and we'll get the stool for ROBOT PROGRAMMER as well CT of the abdomen and pelvis cannot be obtained secondary to acute renal failure, but will request the abdominal sonogram for any intra-abdominal pathology. Symptomatic care. In the meantime (3) HTN (hypertension) Status: Chronic Problem Text: Hold Norvasc and lisinopril Follow BUN and creatinine Related beta blockers if blood pressure is more than 150s systolic Can restart it home meds once the kidney function back to normal Plan / VTE VTE Prophylaxis Ordered?: Yes YANIRA SHARMA MD Jun 27, 2019 13:12
[2019-06-27] MEDS ORDERED: ONDANSETRON 4MG/2ML VIAL (J2405) IV PRN (13:15)
[2019-06-27 13:25] LABS: MAGNESIUM LEVEL 1.3 MG/DL (1.8-2.4)
[2019-06-27] MEDS ORDERED: CIPROFLOXACIN 200 MG in APPROPRIATE DILUENT 1 EA IV ONE (14:00)
[2019-06-27 15:34] LABS: CLOSTRIDIUM DIFFICILE PCR NEGATIVE (NEGATIVE)
[2019-06-27 15:58] VITALS: BP 124/60
[2019-06-27] MEDS: PANTOPRAZOLE 20 MG TAB PO SCH (16:19)
[2019-06-27] MEDS: ASPIRIN 81 MG ENTERIC TAB PO SCH (16:20)
[2019-06-27 18:13] LABS: ALBUMIN 2.4 GM/DL (3.2-5.2); CALCIUM LEVEL 6.8 MG/DL (8.8-10.2); CREATININE FOR GFR 8.09 MG/DL (0.70-1.30); GLOMERULAR FILTRATION RATE 6.7 (>35); PHOSPHORUS LEVEL 6.3 MG/DL (2.5-4.9); POTASSIUM SERUM 3.8 MEQ/L (3.5-5.1)
[2019-06-27] MEDS: HEPARIN SOD (PORCINE) 5000 UNITS/ML VIAL SC SCH (18:31)
[2019-06-27] MEDS: CIPROFLOXACIN 200 MG in APPROPRIATE DILUENT 1 EA IV SCH (18:31)
[2019-06-27] MEDS: D5W/LR 1,000 ML IV SCH (21:04)
[2019-06-27 22:00] VITALS: BP 94/46
--- NOTE | 2019-06-27 22:02 | CR ---
DATE OF CONSULTATION: 06/27/2019 REQUESTING PHYSICIAN: Dr. Aguiar in the emergency room. CONSULTING PHYSICIAN: Maureen Villalba MD REASON FOR CONSULTATION: Management of acute renal failure. CHIEF COMPLAINT: The patient presented to the emergency room with nausea, vomiting and diarrhea. HISTORY OF PRESENT ILLNESS: Mr. Efrem Stanley is an 88-year-old male with past medical history of chronic kidney disease stage III with a baseline creatinine of around 1.3, history of hypertension and Crohn disease. He was brought into the emergency room by his daughters and as reported by daughter's the patient was having diarrhea, nausea, vomiting, inability to keep anything down for the last 5 days almost. There were no fevers or chills but daughters reported that he was not even able to keep liquids down. The patient also has history of Crohn disease in the past. The patient is getting the Entyvio infusions as outpatient for his Crohn disease. Further evaluation in the emergency room showed the patient was in acute renal failure with a creatinine of 9.4 and a BUN of 64. The patient was given IV fluid hydration in the emergency room. He was being admitted under the hospitalist service. Nephrology service was called for further help in the management of acute renal failure. The patient needed my emergent attention. I saw and evaluated the patient at the bedside today in the evening. The patient was awake in no apparent distress. He was getting IV fluid hydration. His daughters were present at the bedside. PAST MEDICAL HISTORY Crohn disease. History of chronic kidney disease stage III, baseline creatinine of around 1.3. Hypertension. Peripheral vascular disease. PAST SURGICAL HISTORY Status post cholecystectomy in the past. Status post brain tumor surgery. Status post right leg peripheral vascular disease surgery. History of right shoulder surgery. ALLERGIES: NO KNOWN DRUG ALLERGIES. FAMILY HISTORY: No significant family history of end-stage renal disease requiring hemodialysis. SOCIAL HISTORY The patient is an active smoker. He smokes more than one pack per day. He denies any illicit drug abuse or alcohol abuse. REVIEW OF SYSTEMS Constitutional: He denies any fevers and chills. Eyes: He denies any blurry vision, double vision. ENT: Denies any dysphagia, odynophagia, ear discharge. Cardiovascular: Denies any chest pain or palpitation. Respiratory: Denies any shortness of breath. GI: He reports nausea, vomiting and diarrhea. Genitourinary: He reports decreased urine output. Musculoskeletal: He denies any muscle aches and pains. GROUND TRANSPORTATION OPERATOR: He denies any strokes or seizures. Skin: He denies any rashes or ulcers. Endocrine: He denies any history of diabetes or history of hypothyroidism. All other review of systems is negative. PHYSICAL EXAMINATION General: The patient is awake, alert, oriented times two laying in bed. Vital signs: Temperature is 97.9 degrees Fahrenheit, blood pressure 124/60. Pulses 89, respiratory rate of 18, saturating 100% on room air. Head and neck examination: Extraocular muscles intact. The patient has a large surgical incision rojelio on the forehead. Mucous membranes are moist. Neck is supple. There is no JVD. Cardiovascular: S1, S2 regular rate. No edema of the bilateral lower extremities. Respiratory: Chest is clear to auscultation bilaterally. Bilateral equal air entry. No rales or rhonchi. Abdomen: Soft. Hyperactive bowel sounds. Mildly tender to deep palpation in the left lower quadrant. Genitourinary: Bladder is not palpable. Musculoskeletal: No clubbing or cyanosis. Pulses are 2+. GROUND TRANSPORTATION OPERATOR: No focal deficit. Power is 5/5 in all extremities. Skin: No rashes or ulcers, but he has decreased skin turgor which is a sign of dehydration. LAB REVIEW: CBC showed WBC of 19, hemoglobin 14.1, platelets are 340. ABG showed a pH of 7.17. BMP on arrival showed sodium 142, potassium 3.8, chloride 110, bicarb 17, BUN 64, creatinine 9.4, glucose 119, lactic acid was 2, calcium 7.6, magnesium 1.3, albumin is 3. Repeat BMP done in the evening showed sodium 145, potassium 3.8, chloride 117, bicarb 18, BUN 61, creatinine 8, calcium 6.8, phosphorus is 6.3, albumin is 2.4. Microbiology: GI panel is positive for campylobacter and enteroaggregative E. Coli. IMAGING STUDIES A chest x-ray was done which showed no acute pathology. CURRENT INPATIENT MEDICATIONS The patient's medications were all reviewed by me. He has been started on Ciprofloxacin 200 mg IV daily. He is on Flagyl 500 mg IV every 8 hourly. He was given normal saline 1 liter bolus initially and then another bolus of 500 mL. The patient was getting normal saline at 150 mL an hour. I have changed the IV fluids to D5 Ringer's lactate at 150 mL an hour. He is on aspirin 81 mg daily, heparin 5000 units subcu every 12 hourly, Zofran as needed (p.r.n.) and Protonix 20 mg p.o. daily ASSESSMENT 88-year-old male with history of Crohn disease getting Entyvio as outpatient, history of hypertension and chronic kidney disease stage III admitted this time with acute kidney injury and acute gastroenteritis. PLAN 1. Acute kidney injury. It is secondary to dehydration on volume depletion and use of lisinopril and amlodipine as outpatient. The patient has already been given 1.5 liters of normal saline. He was getting normal saline because of hyperchloremic metabolic acidosis and worsening sodium levels. I have changed IV fluids to D5 Ringer's lactate. Continue to monitor intake and output. Hopefully urine output improvement would also help improve renal function. No urgent need of renal replacement therapy at this time. 2. Acute gastroenteritis. The patient has Enteroaggregative E-coli and campylobacter infection. He is currently on IV ciprofloxacin. Dose is adequate for his renal function. Once renal function improves, then ciprofloxacin dose will be increased. Okay to continue Flagyl as well. 3. History of hypertension. The patient is getting IV fluid hydration. Blood pressures are acceptable. Continue to hold amlodipine and IVORY inhibitors at this time. 4. Normal anion gap metabolic acidosis. It is secondary to diarrhea and dehydration and acute renal failure. No need of IV bicarb administration. The patient is getting Ringer's lactate. Lactate would convert into bicarb in the liver and would help improve acidosis as well. 5. Hyperphosphatemia. It is secondary to acute renal failure, phosphorus level would improve with improvement in the renal function. 6. Hypomagnesemia. I will give him a dose of IV magnesium sulfate. Thank you for involving me in the care of this patient. I shall be happy to follow the patient along with you tomorrow morning.
[2019-06-27] MEDS: metroNIDAZOLE 500 MG in APPROPRIATE DILUENT 1 EA IV SCH (23:59)
[2019-06-28] MEDS: D5W/LR 1,000 ML IV SCH (03:53)
[2019-06-28] MEDS: HEPARIN SOD (PORCINE) 5000 UNITS/ML VIAL SC SCH ×2 (05:46→18:52)
[2019-06-28 06:00] VITALS: BP 130/66
[2019-06-28 07:17] LABS: HEMATOCRIT 30.6 % (42.0-52.0); MEAN CORPUSCULAR HGB CONC 33.3 g/dl (32.0-36.5); MEAN CORPUSCULAR VOLUME 86.9 fl (80.0-96.0); RED BLOOD COUNT 3.52 10^6/uL (4.30-6.10); WHITE BLOOD COUNT 11.3 10^3/uL (4.0-10.0)
[2019-06-28 07:21] LABS: HEMOGLOBIN 10.2 g/dl (13.5-17.5)
[2019-06-28 07:22] LABS: PLATELET COUNT, AUTOMATED 236 10^3/uL (150-450)
[2019-06-28 07:51] LABS: ALBUMIN 2.1 GM/DL (3.2-5.2); BILIRUBIN,TOTAL 0.3 MG/DL (0.2-1.0); CALCIUM LEVEL 6.6 MG/DL (8.8-10.2); CREATININE FOR GFR 5.57 MG/DL (0.70-1.30); GLOMERULAR FILTRATION RATE 10.3 (>35); POTASSIUM SERUM 3.2 MEQ/L (3.5-5.1); TOTAL PROTEIN 5.3 GM/DL (6.4-8.2)
--- NOTE | 2019-06-28 08:27 | REP ---
Abdominal ultrasound for nausea, vomiting and acute renal failure: The gallbladder is obscured by bowel gas. There is no intrahepatic or extrahepatic biliary duct dilatation. The common biliary duct measures 5.6 ml. The hepatic parenchyma is homogeneous. There is no hepatic mass. The pancreas is obscured by bowel gas. The spleen is normal size measuring 9.6 x 6.7 x 4.0 cm for splenic index of 257. There are no focal splenic masses. The right kidney measures 8.9 x 3.8 x 4.3 cm and is atrophic size. The left kidney measures 9.6 x 4.5 x 5.2 cm and is low normal size. There are no renal calculi. There is no hydronephrosis. There are no solid or cystic renal masses. The aorta is obscured by bowel gas. The study is technically difficult because of a large volume of bowel gas. Impression: The right kidney is atrophic size. The left kidney is low normal size. The kidneys are otherwise unremarkable. The gallbladder, pancreas and aorta are obscured by bowel gas. The hepatic parenchyma is unremarkable. No right upper quadrant ascites. Electronically Signed by Dimitri Paz MD 06/28/2019 08:18 A
[2019-06-28] MEDS ORDERED: CALCIUM GLUCONATE 1,000 MG in D5W MINI-BAG PLUS 100 ML IV ONE ×2 (09:00→11:00)
[2019-06-28] MEDS ORDERED: POTASSIUM CHLORIDE 10 MEQ SR TABLET PO ONE ×2 (09:00→19:30)
[2019-06-28 09:40] LABS: PHOSPHORUS LEVEL 3.8 MG/DL (2.5-4.9)
[2019-06-28] MEDS: PANTOPRAZOLE 20 MG TAB PO SCH (09:49)
[2019-06-28] MEDS: ASPIRIN 81 MG ENTERIC TAB PO SCH (09:49)
[2019-06-28] MEDS: metroNIDAZOLE 500 MG in APPROPRIATE DILUENT 1 EA IV SCH ×3 (09:51→23:32)
--- NOTE | 2019-06-28 10:57 | IPNPDOC ---
Subjective Date Seen The patient was seen on 06/28/19. Subjective Chief Complaint/HPI Mayra feels much better, decreased nausea, no vomiting General: Denies: ROS Unobtainable, Chills, Night Sweats, Fatigue, Malaise, Normal Appetite, Other Symptoms Constitutional: Denies: Chills, Fever, Malaise, Night Sweats, Weakness, Fatigue, Weight Loss, Lethargy, Other Pulmonary: Denies: Dyspnea, Cough, Pleuritic Chest Pain, Other Symptoms Cardiovascular: Denies: Chest Pain, Palpitations, Orthopnea, Paroxysmal Noc. Dyspnea, Edema, Lt Headedness, Other Symptoms Gastrointestinal: Denies: Nausea, Vomiting, Abdominal Pain, Diarrhea, Constipation Musculoskeletal: Denies: Neck Pain, Back Pain, Shoulder Pain, Arm Pain, Hand Pain, Leg Pain, Foot Pain, Joint Pain, Muscle Pain, Spasms, Other Symptoms Neurological: Denies: Weakness, Numbness, Incoordination, Change in speech, Confusion, Seizures, Other Symptoms Objective Physical Examination ENT Exam: Positive: Atraumatic, Mucous membr. moist/pink Neck Exam: Positive: Supple Chest Exam: Positive: Clear to auscultation, Normal air movement Heart Exam: Positive: Rate Normal, Normal S1, Normal S2 Abdomen Exam: Positive: Normal bowel sounds, Soft Extremity Exam: Positive: Normal pulses Skin Exam: Positive: Nl turgor and temperature Neuro Exam: Positive: Strength at 5/5 X4 ext, Normal Tone, Sensation Intact Assessment /Plan Problems (1) Acute kidney injury Status: Acute Problem Text: 88 years old white male with past medical history of hyp ertension, had developed nausea, vomiting, diarrhea since last 5 days. Patient doesn't history of Crohn's disease and hypertension for which he takes calcium genital yoan and IVORY inhibitor. Acute renal failure could be secondary to multiple factors including nausea, vomiting, diarrhea, and as well as ivory inhibitors. Patient improving very well with IV hydration His BUN is 60, creatinine 5.57 Continue present IV hydration as per orders Repeat labs in a.m. nephrology consultation appreciated (2) HTN (hypertension) Status: Chronic Problem Text: Hold Norvasc and lisinopril Follow BUN and creatinine Related beta blockers if blood pressure is more than 150s systolic Can restart it home meds once the kidney function back to normal (3) Gastroenteritis Status: Acute Problem Text: Diarrhea with nausea, vomiting. Patient doesn't history of Crohn's disease but has no abdominal pain. GI panel positive for Campylobacter and Escherichia coli Continue Cipro and Flagyl as patient is responding Possibly will change to by mouth tomorrow. His WBC count is only 11.3 today Continue symptomatic care Plan/VTE VTE Prophylaxis Ordered?: Yes VS, I&O, 24H, Fishbone Vital Signs/I&O Vital Signs Date Time Temp Pulse Resp B/P (MAP) Pulse Ox O2 Delivery O2 Flow Rate FiO2 06/28/19 06:00 98.7 91 18 130/66 (87) 98 06/27/19 15:09 Room Air I&O- Last 24 Hours up to 6 AM 06/28/19 06:00 Intake Total 3592 ml Output Total 200 ml Balance 3392 ml Laboratory Data 24H LABS Laboratory Tests 2 06/27/19 14:32: Clostridium difficile [id number] PRESUMPTIVE NEGATIVE, Clostridium difficile Toxin (PCR) NEGATIVE 06/27/19 17:09: Blood Urea Nitrogen 61H, Creatinine 8.09*H, Sodium Level 145, Potassium Level 3.8, Chloride Level 117H, Carbon Dioxide Level 18L, Anion Gap 10, Glomerular Filtration Rate 6.7L, Calcium Level 6.8L, Phosphorus Level 6.3H, Albumin 2.4L 06/28/19 06:55: Blood Urea Nitrogen 60H, Creatinine 5.57H, Sodium Level 145, Potassium Level 3.2L, Chloride Level 118H, Carbon Dioxide Level 18L, Anion Gap 9, Glomerular Filtration Rate 10.3L, Calcium Level 6.6L, Phosphorus Level 3.8#, Albumin 2.1L, Nucleated Red Blood Cells % (auto) 0.0, Aspartate Amino Transf (AST/SGOT) 11, Alanine Aminotransferase (ALT/SGPT) 9L, Alkaline Phosphatase 79, Total Bilirubin 0.3, Total Protein 5.3#L, Magnesium Level 1.0L, Albumin/Globulin Ratio 0.66L CBC/BMP Laboratory Tests 06/27/19 17:09 Anion Gap 10 06/28/19 06:55 Red Blood Count 3.52 L, Mean Corpuscular Volume 86.9, Mean Corpuscular Hemoglobin 29.0, Mean Corpuscular Hemoglobin Concent 33.3, Red Cell Distribution Width 13.9, Calcium Level 6.6 L, Phosphorus Level 3.8 #, Aspartate Amino Transf (AST/SGOT) 11, Alanine Aminotransferase (ALT/SGPT) 9 L, Alkaline Phosphatase 79, Total Bilirubin 0.3, Total Protein 5.3 #L, Albumin 2.1 L Microbiology Microbiology 06/27/19 Gastrointestinal Tract Panel (PCR) - Final, Complete Campylobacter Enteroaggregative E.coli YANIRA SHARMA MD Jun 28, 2019 10:56
[2019-06-28] MEDS: MAG SULF 1GM/100ML (MAG RUN) 1 GM in APPROPRIATE DILUENT 1 EA IV SCH ×2 (12:28→14:08)
--- NOTE | 2019-06-28 12:56 | IPN ---
DATE OF SERVICE: 06/28/2019 SUBJECTIVE: The patient was seen and examined at the bedside today morning. His daughters were also present at the bedside. The patient reports that he is feeling better today as compared with yesterday. He started tolerating the oral diet now. He continues to be on IV fluid. Renal function is very gradually improving, but it is not within the normal range. He still has a hypokalemia and metabolic acidosis along with hypomagnesemia. OBJECTIVE: Vital signs: Temperature is 98.7 degree Fahrenheit, blood pressure 130/66, pulse is 91, respiratory of 18, saturating 98% on room air. Intake and output - there is no urine output recorded. Weight in the bed scale is not available. PHYSICAL EXAMINATION: General: The patient is awake, alert, oriented times three, laying in bed in no apparent distress. Head and neck exam the patient has a large incision on the forehead. Mucous membranes are moist. Neck is supple. There is no jugular venous distention (JVD). Cardiovascular: S1, S2, regular rate. No edema of the bilateral lower extremities. Respiratory: Chest is clear to auscultation bilaterally. Bilateral equal air entry. No rales or rhonchi. Abdomen: Soft, positive bowel sounds. Nontender. Musculoskeletal: No clubbing or cyanosis. Pulses are 2+. FUSE ASSEMBLER: No focal deficit. Power is 5/5 in all extremities. LAB REVIEW: CBC showed a WBC 11.3, hemoglobin is 10.2, platelets are 236. BMP showed sodium 145, potassium 3.2, chloride 118, bicarb 18, BUN 60, creatinine is 5.5, calcium 6.6, phosphorus is 3.8, magnesium is 1, albumin 2.1. Microbiology - GI panel showed Campylobacter and enteroaggregative E.coli. CURRENT INPATIENT MEDICATIONS: The patient's medications were all reviewed by me. He currently is on ciprofloxacin 200 mg IV daily. I changed his IV fluid to D5W with 100 mEq of bicarb and 20 mEq of potassium chloride which is running at 125 mL an hour. He continues to be on IV Flagyl and he was also given potassium chloride 40 mEq by mouth times one dose and I ordered mag sulfate 1 gram IV times two doses today morning. ASSESSMENT AND PLAN: 1. Acute kidney injury is secondary to dehydration and volume depletion secondary to acute gastroenteritis and use of lisinopril. The patient continues to be on IV fluids. Renal function is slowly improving. IV fluid changes as mentioned below. No urgent need of dialysis. 2. Hypokalemia. The patient was given oral potassium 40 mEq. I have also added potassium in the IV fluid. 3. Normal anion gap metabolic acidosis. It is secondary to diarrhea and acute renal failure. I changed the IV fluids to D5W with 100 mEq of bicarb at 20 mEq KCl. 4. Hypomagnesemia. The patient was given mag sulfate 1 gram IV times two doses. 5. Hypocalcemia. I have ordered one dose of calcium gluconate 1 gram IV times one dose. 6. Acute gastroenteritis. The patient is growing enteroaggregative E.coli. and Campylobacter. He continues to be on Cipro and Flagyl. White cell count is improving. 7. Hyperphosphatemia. Phosphorus level has improved with IV fluid hydration. It is down to 3.8 today.
[2019-06-28 13:49] LABS: ALBUMIN 2.2 GM/DL (3.2-5.2); CALCIUM LEVEL 6.7 MG/DL (8.8-10.2); CREATININE FOR GFR 4.62 MG/DL (0.70-1.30); GLOMERULAR FILTRATION RATE 12.8 (>35); PHOSPHORUS LEVEL 2.7 MG/DL (2.5-4.9); POTASSIUM SERUM 3.4 MEQ/L (3.5-5.1)
[2019-06-28 13:57] VITALS: BP 146/60
[2019-06-28] MEDS ORDERED: MAG SULF 1GM/100ML (MAG RUN) 1 GM in APPROPRIATE DILUENT 1 EA IV ONE (14:00)
[2019-06-28] MEDS ORDERED: MAG SULF 1GM/100ML (MAG RUN) 1 GM in APPROPRIATE DILUENT 1 EA IV SCH (14:15)
[2019-06-28] MEDS ORDERED: LIDOCAINE 1% MDV 20ML VIAL As Ordered ONE (17:37)
[2019-06-28 18:33] VITALS: BP 157/62
[2019-06-28] MEDS ORDERED: SODIUM CHLORIDE 0.9% INJ 10 ML SYR IV PRN (18:45)
[2019-06-28 18:50] VITALS: BP 154/63
[2019-06-28] MEDS: SODIUM BICARBONATE 100 MEQ, POTASSIUM CHLORIDE INJ 20 MEQ in D5W 1,000 ML IV SCH ×3 (18:53→23:33)
[2019-06-28] MEDS: CIPROFLOXACIN 200 MG in APPROPRIATE DILUENT 1 EA IV SCH (19:58)
[2019-06-28 20:03] VITALS: BP 148/59
--- NOTE | 2019-06-28 21:23 | ECGEPIP ---
[facility] - ED Test Date: 2019-06-27 Pat Name: ERROL SRIVASTAVA Department: Room: - Gender: Male Reporting Process Consultant: chalino : 1930 Requested By: [place] Order Number: [id number] Reading MD: Neelima Ac Measurements Intervals Emerson Rate: 93 P: 56 AR: 139 QRS: -16 QRSD: 94 T: 81 QT: 371 QTc: 462 Interpretive Statements SINUS RHYTHM WITH OCCASIONAL SUPRAVENTRICULAR PREMATURE COMPLEXES SEPTAL MYOCARDIAL INFARCTION, PROBABLY OLD INCREASED ECTOPY/RATE 08/15/18 Electronically Signed on 06-28-2019 21:23:49 EDT by Neelima Ac
[2019-06-29] MEDS: SODIUM CHLORIDE 0.9% INJ 10 ML SYR IV SCH ×2 (01:26→17:41)
[2019-06-29] MEDS: HEPARIN SOD (PORCINE) 5000 UNITS/ML VIAL SC SCH ×2 (05:43→19:24)
[2019-06-29 06:14] VITALS: BP 146/59
[2019-06-29 07:09] LABS: IONIZED CALCIUM 4.2 MG/DL (4.5-5.3)
[2019-06-29 07:15] LABS: BASO % 0.2 % (0.0-1.0); EOS # 0.3 10^3/uL (0.0-0.5); EOS % 3.1 % (0.0-3.0); HEMATOCRIT 31.5 % (42.0-52.0); HEMOGLOBIN 10.3 g/dl (13.5-17.5); LYMPH # 2.3 10^3/uL (1.5-5.0); LYMPH % 24.9 % (24.0-44.0); MEAN CORPUSCULAR HEMOGLOBIN 28.4 pg (27.0-33.0); MEAN CORPUSCULAR HGB CONC 32.7 g/dl (32.0-36.5); MEAN CORPUSCULAR VOLUME 86.8 fl (80.0-96.0); MONO % 11.2 % (0.0-5.0); NEUTROPHILS # 5.5 10^3/uL (1.5-8.5); NEUTROPHILS % 60.1 % (36.0-66.0); PLATELET COUNT, AUTOMATED 224 10^3/uL (150-450); RED BLOOD COUNT 3.63 10^6/uL (4.30-6.10); WHITE BLOOD COUNT 9.1 10^3/uL (4.0-10.0)
[2019-06-29 07:39] LABS: ALBUMIN 2.1 GM/DL (3.2-5.2); CALCIUM LEVEL 6.7 MG/DL (8.8-10.2); CREATININE FOR GFR 2.35 MG/DL (0.70-1.30); MAGNESIUM LEVEL 1.3 MG/DL (1.8-2.4); PHOSPHORUS LEVEL 1.1 MG/DL (2.5-4.9); POTASSIUM SERUM 4.2 MEQ/L (3.5-5.1)
[2019-06-29] MEDS: PANTOPRAZOLE 20 MG TAB PO SCH (08:32)
[2019-06-29] MEDS: metroNIDAZOLE 500 MG in APPROPRIATE DILUENT 1 EA IV SCH (08:32)
[2019-06-29] MEDS: ASPIRIN 81 MG ENTERIC TAB PO SCH (08:32)
[2019-06-29] MEDS: NS 0.45% 1,000 ML IV SCH ×2 (09:38→20:47)
[2019-06-29] MEDS: MAG SULF 1GM/100ML (MAG RUN) 1 GM in APPROPRIATE DILUENT 1 EA IV SCH ×2 (09:39→10:37)
[2019-06-29] MEDS ORDERED: CALCIUM GLUCONATE 1,000 MG in D5W MINI-BAG PLUS 100 ML IV ONE (11:00)
[2019-06-29 14:13] VITALS: BP 130/54
--- NOTE | 2019-06-29 17:32 | REP ---
MIDLINE CATHETER INSERTION WITH SITE DANITZATato The procedure was performed under the direct supervision of Dr. Garduno. The risks and benefits of the procedure were explained to the patient and informed consent was obtained. The right basilic vein was localized using ultrasound guidance. The skin was prepped and draped in a sterile fashion. 1% lidocaine was used as a local anesthetic. Using ultrasound guidance the basilic vein was cannulated and a 0.0 a guide wire was inserted. The needle was removed and a 5.5 Mexican dilator and peel-away sheath was inserted over the guide wire. A 5.5 Mexican dual lumen catheter was left at a length of 16.5 cm. The dilator was removed and the catheter was inserted over the guide wire. The peel-away sheath was removed and the catheter was flushed with heparinized saline as per Hospital protocol. The catheter was affixed to the skin and a sterile dressing was applied. The patient tolerated the procedure well and there were no immediate complications. Electronically Signed by MANUEL Mccord 06/29/2019 01:44 P Electronically Signed by Dimitri Garduno MD 06/29/2019 05:22 P
[2019-06-29] MEDS: CIPROFLOXACIN 250 MG TAB PO SCH (17:59)
[2019-06-29 22:00] VITALS: BP 140/56
[2019-06-30] MEDS: SODIUM CHLORIDE 0.9% INJ 10 ML SYR IV SCH ×2 (05:04→16:26)
[2019-06-30] MEDS: NS 0.45% 1,000 ML IV SCH (05:10)
[2019-06-30 06:00] VITALS: BP 143/58
[2019-06-30] MEDS: HEPARIN SOD (PORCINE) 5000 UNITS/ML VIAL SC SCH ×2 (06:27→18:04)
[2019-06-30] MEDS: CIPROFLOXACIN 250 MG TAB PO SCH ×2 (06:27→18:03)
[2019-06-30 06:33] LABS: BASO # 0.1 10^3/uL (0.0-0.2); BASO % 0.4 % (0.0-1.0); EOS # 0.5 10^3/uL (0.0-0.5); EOS % 3.7 % (0.0-3.0); HEMATOCRIT 30.9 % (42.0-52.0); HEMOGLOBIN 10.2 g/dl (13.5-17.5); LYMPH # 2.1 10^3/uL (1.5-5.0); LYMPH % 16.2 % (24.0-44.0); MEAN CORPUSCULAR HEMOGLOBIN 28.7 pg (27.0-33.0); MEAN CORPUSCULAR VOLUME 86.8 fl (80.0-96.0); MONO # 1.2 10^3/uL (0.0-0.8); MONO % 9.2 % (0.0-5.0); NEUTROPHILS # 9.1 10^3/uL (1.5-8.5); NEUTROPHILS % 70.1 % (36.0-66.0); PLATELET COUNT, AUTOMATED 235 10^3/uL (150-450); RED BLOOD COUNT 3.56 10^6/uL (4.30-6.10); WHITE BLOOD COUNT 12.9 10^3/uL (4.0-10.0)
[2019-06-30 06:59] LABS: BILIRUBIN,TOTAL 0.3 MG/DL (0.2-1.0); CREATININE FOR GFR 1.37 MG/DL (0.70-1.30); GLOMERULAR FILTRATION RATE 52.2 (>35); TOTAL PROTEIN 4.6 GM/DL (6.4-8.2)
[2019-06-30] MEDS: ASPIRIN 81 MG ENTERIC TAB PO SCH (08:39)
[2019-06-30] MEDS: PANTOPRAZOLE 20 MG TAB PO SCH (08:40)
--- NOTE | 2019-06-30 08:54 | IPN ---
DATE: 06/29/2019 SUBJECTIVE: The patient was seen and examined at bedside today morning. The patient is afebrile, hemodynamically stable. He reports that episodes of diarrhea improving now. He is having 3-4 loose bowel movements a day. He continues to be on IV fluid hydration. Renal function is gradually improving. Creatinine is down to 2.3 today. The patient has developed hyponatremia today. He still continues to have hypomagnesemia and hypocalcemia. OBJECTIVE: Vital signs: Temperature is 98 degrees Fahrenheit, blood pressure 146/59, pulse is 61, respiratory of 19, saturating 99% on room air. Intake and output: Urine output recorded is 150 mL so far today since overnight. Weight in the bed scale is 58.1 kg. PHYSICAL EXAMINATION: General: The patient is awake, alert, oriented times two, laying in bed, in no apparent distress. Head and neck exam: Pupils are equally round and reactive to light. Mucous membranes are moist. Neck is supple. There is no jugular venous distention (JVD). Cardiovascular: S1, S2, regular rate. No edema of the bilateral lower extremities. Respiratory: Chest is clear to auscultation bilaterally. Bilateral equal air entry. No rales or rhonchi. Abdomen: Soft, positive bowel sounds. Nontender. No organomegaly. Musculoskeletal: No clubbing or cyanosis. Pulses are 2+. Central nervous system (CHLORINE OPERATOR): No focal deficit. Power is 5/5 in all extremities. LAB REVIEW: CBC showed WBC of 9.1, hemoglobin 10.3, platelets are 224. BMP showed sodium 148, potassium 4.2, chloride 119, bicarbonate 21, BUN 39, creatinine is 2.3, calcium 6.7, ionized calcium is 4.2, phosphorus is 1.1, magnesium 1.3, albumin 2.1. CURRENT INPATIENT MEDICATIONS: The patient's medications were all reviewed by me. I have changed his IV fluid to half-normal saline at 100 mL/h. I have ordered calcium gluconate 1 gram IV times one dose. He is also going to get magnesium sulfate 1 gram IV times two doses. He has been started on ciprofloxacin 250 mg by mouth twice a day. No other change in the medications today as compared with yesterday. ASSESSMENT/PLAN: 1. Acute kidney injury. It was secondary to dehydration and use of Angiotensin-converting enzyme (IVORY) inhibitors at home. The patient continues to been IV fluid hydration. Urine output is improving. Creatinine is down to 2.3. IV fluids have been changed according to the electrolytes. 2. Hypernatremia. The patient's sodium has bumped up to 148. I have changed the IV fluids to half-normal saline at 100 mL/h. Continue to encourage oral hydration as well. 3. Hypocalcemia. The patient was given calcium gluconate 1 gram IV times one dose. 4. Hypomagnesemia. He was given magnesium sulfate 1 gram IV times two doses yesterday and two doses are being given again today. 4. Hypophosphatemia. The patient was encouraged to take more food. No need of IV phosphorus administration at this time. 5. Metabolic acidosis. The patient was given bicarbonate containing fluids yesterday, which has improved the acidosis but it caused hypernatremia. IV bicarbonate has been stopped. Serum bicarbonate level is 21, which is acceptable for now. No need of further bicarbonate administration. 6. Acute gastroenteritis. The patient is on oral ciprofloxacin now for Escherichia (E) coli and Campylobacter. Symptoms are improving. White cell count is getting better. MTDD
--- NOTE | 2019-06-30 10:40 | IPNPDOC ---
Subjective Date Seen The patient was seen on 06/30/19. Subjective Chief Complaint/HPI Patient is afebrile, asymptomatic. His diarrhea is resolving now with semi- formed stool General: Denies: ROS Unobtainable, Chills, Night Sweats, Fatigue, Malaise, Normal Appetite, Other Symptoms Constitutional: Denies: Chills, Fever, Malaise, Night Sweats, Weakness, Fatigue, Weight Loss, Lethargy, Other Skin: Denies: Rash, Lesions, Jaundice, Bruising, Itching, Dry, Breakdown, Nail Changes, Other Pulmonary: Denies: Dyspnea, Cough, Pleuritic Chest Pain, Other Symptoms Cardiovascular: Denies: Chest Pain, Palpitations, Orthopnea, Paroxysmal Noc. Dyspnea, Edema, Lt Headedness, Other Symptoms Gastrointestinal: Denies: Nausea, Vomiting, Abdominal Pain, Diarrhea, Constipation, Melena, Hematochezia, Other Symptoms Musculoskeletal: Denies: Neck Pain, Back Pain, Shoulder Pain, Arm Pain, Hand Pain, Leg Pain, Foot Pain, Joint Pain, Muscle Pain, Spasms, Other Symptoms Neurological: Denies: Weakness, Numbness, Incoordination, Change in speech, Confusion, Seizures, Other Symptoms Objective Physical Examination ENT Exam: Positive: Atraumatic, Mucous membr. moist/pink Neck Exam: Positive: Supple Chest Exam: Positive: Clear to auscultation Heart Exam: Positive: Rate Normal, Normal S1, Normal S2 Abdomen Exam: Positive: Normal bowel sounds, Soft Extremity Exam: Positive: Normal pulses Skin Exam: Positive: Nl turgor and temperature Assessment /Plan Problems (1) Acute kidney injury Status: Acute Problem Text: 88 years old white male with past medical history of hypertension, had developed nausea, vomiting, diarrhea since last 5 days. Patient doesn't history of Crohn's disease and hypertension for which he takes calcium genital yoan and IVORY inhibitor. Acute renal failure could be secondary to multiple factors including nausea, vomiting, diarrhea, and as well as ivory inhibitors. Patient improving very well with IV hydration BUN today is 20 and creatinine of 1.37 We will continue the IV hydration until the BUN/creatinine is within normal range , Hopefully patient will be discharged home tomorrow (2) HTN (hypertension) Status: Chronic Problem Text: Hold Norvasc and lisinopril Follow BUN and creatinine Related beta blockers if blood pressure is more than 150s systolic Will restart meds tomorrow (3) Gastroenteritis Status: Acute Problem Text: Diarrhea with nausea, vomiting. Patient doesn't history of Crohn's disease but has no abdominal pain. GI panel positive for Campylobacter and Escherichia coli Continue by mouth Cipro WBC count is slightly elevated to 12.9 Patient is afebrile. His diarrhea is resolving and has no more nausea, vomiting Continue symptomatic care Plan/VTE VTE Prophylaxis Ordered?: Yes VS, I&O, 24H, Fishbone Vital Signs/I&O Vital Signs Date Time Temp Pulse Resp B/P (MAP) Pulse Ox O2 Delivery O2 Flow Rate FiO2 06/30/19 06:00 98.8 71 18 143/58 (86) 98 06/27/19 15:09 Room Air I&O- Last 24 Hours up to 6 AM 06/30/19 06:00 Intake Total 3320 ml Output Total 1225 ml Balance 2095 ml Laboratory Data 24H LABS Laboratory Tests 2 06/30/19 06:22: Immature Granulocyte % (Auto) 0.4, White Blood Count 12.9H, Red Blood Count 3.56L, Hemoglobin 10.2L, Hematocrit 30.9L, Mean Corpuscular Volume 86.8, Mean Corpuscular Hemoglobin 28.7, Mean Corpuscular Hemoglobin Concent 33.0, Red Cell Distribution Width 14.0, Platelet Count 235, Neutrophils (%) (Auto) 70.1H, Lymphocytes (%) (Auto) 16.2L, Monocytes (%) (Auto) 9.2H, Eosinophils (%) (Auto) 3.7H, Basophils (%) (Auto) 0.4, Neutrophils # (Auto) 9.1H, Lymphocytes # (Auto) 2.1, Monocytes # (Auto) 1.2H, Eosinophils # (Auto) 0.5, Basophils # (Auto) 0.1, Nucleated Red Blood Cells % (auto) 0.0, Anion Gap 6L, Glomerular Filtration Rate 52.2, Blood Urea Nitrogen 20H, Creatinine 1.37H, Sodium Level 148H, Potassium Level 4.0, Chloride Level 121H, Carbon Dioxide Level 21, Calcium Level 7.0L, Aspartate Amino Transf (AST/SGOT) 8, Alanine Aminotransferase (ALT/SGPT) 9L, Alkaline Phosphatase 70, Total Bilirubin 0.3, Total Protein 4.6L, Albumin 2.0L, Albumin/Globulin Ratio 0.77L CBC/BMP Laboratory Tests 06/30/19 06:22 Red Blood Count 3.56 L, Mean Corpuscular Volume 86.8, Mean Corpuscular Hemoglobin 28.7, Mean Corpuscular Hemoglobin Concent 33.0, Red Cell Distribution Width 14.0, Neutrophils (%) (Auto) 70.1 H, Lymphocytes (%) (Auto) 16.2 L, Monocytes (%) (Auto) 9.2 H, Eosinophils (%) (Auto) 3.7 H, Basophils (%) (Auto) 0.4, Neutrophils # (Auto) 9.1 H, Lymphocytes # (Auto) 2.1, Monocytes # (Auto) 1.2 H, Eosinophils # (Auto) 0.5, Basophils # (Auto) 0.1, Calcium Level 7.0 L, Aspartate Amino Transf (AST/SGOT) 8, Alanine Aminotransferase (ALT/SGPT) 9 L, Alkaline Phosphatase 70, Total Bilirubin 0.3, Total Protein 4.6 L, Albumin 2.0 L Microbiology Microbiology 06/27/19 Gastrointestinal Tract Panel (PCR) - Final, Complete Campylobacter Enteroaggregative E.coli YANIRA SHARMA MD Jun 30, 2019 10:40
[2019-06-30] MEDS ORDERED: MAG SULF 1GM/100ML (MAG RUN) 1 GM in APPROPRIATE DILUENT 1 EA IV ONE (12:15)
[2019-06-30 14:45] VITALS: BP 161/67
[2019-06-30 22:00] VITALS: BP 134/50
[2019-07-01] MEDS: CIPROFLOXACIN 250 MG TAB PO SCH (04:57)
[2019-07-01] MEDS: SODIUM CHLORIDE 0.9% INJ 10 ML SYR IV SCH (04:57)
[2019-07-01 06:00] VITALS: BP 162/76
[2019-07-01] MEDS: HEPARIN SOD (PORCINE) 5000 UNITS/ML VIAL SC SCH (06:54)
[2019-07-01 07:03] LABS: BASO # 0.1 10^3/uL (0.0-0.2); BASO % 0.4 % (0.0-1.0); EOS # 0.4 10^3/uL (0.0-0.5); EOS % 2.9 % (0.0-3.0); HEMOGLOBIN 11.2 g/dl (13.5-17.5); LYMPH # 3.4 10^3/uL (1.5-5.0); LYMPH % 22.4 % (24.0-44.0); MEAN CORPUSCULAR HEMOGLOBIN 29.1 pg (27.0-33.0); MEAN CORPUSCULAR HGB CONC 32.9 g/dl (32.0-36.5); MEAN CORPUSCULAR VOLUME 88.3 fl (80.0-96.0); MONO # 1.1 10^3/uL (0.0-0.8); MONO % 7.5 % (0.0-5.0); NEUTROPHILS # 9.9 10^3/uL (1.5-8.5); NEUTROPHILS % 66.3 % (36.0-66.0); PLATELET COUNT, AUTOMATED 252 10^3/uL (150-450); RED BLOOD COUNT 3.85 10^6/uL (4.30-6.10)
[2019-07-01 07:33] LABS: ALBUMIN 2.3 GM/DL (3.2-5.2); BILIRUBIN,TOTAL 0.4 MG/DL (0.2-1.0); CALCIUM LEVEL 7.8 MG/DL (8.8-10.2); CREATININE FOR GFR 1.36 MG/DL (0.70-1.30); GLOMERULAR FILTRATION RATE 52.6 (>35); MAGNESIUM LEVEL 1.2 MG/DL (1.8-2.4); PHOSPHORUS LEVEL 1.2 MG/DL (2.5-4.9); POTASSIUM SERUM 4.2 MEQ/L (3.5-5.1); TOTAL PROTEIN 5.2 GM/DL (6.4-8.2)
--- NOTE | 2019-07-01 07:39 | IPN ---
DATE: 06/30/2019 Mr. Stanley is seen this morning on his bedside. He is feeling better and reports that his appetite is improving; however, did not like the hospital food. His daughter has been bringing him snacks. He denies any nausea or vomiting and his diarrhea is improving. He is tolerating IV fluid well and denies any dyspnea or chest pain. He has a history of Crohn's disease with recurrent diarrhea and developed acute renal failure due to dehydration, which is improving with IV fluid. PHYSICAL EXAMINATION: His temperature is 98.8 degrees Fahrenheit, heart rate 71 per minute and respiratory rate 18 per minute. Blood pressure 143/58 mmHg and oxygen saturation 98% on room air. He is edentulous and mucous membranes are moist and healthy without any thrush or ulcers. Head is atraumatic. Neck is supple and without JVD or thyroid enlargement. Heart sounds are regular and lungs sound clear to auscultation. Abdomen is soft and nontender and bowel sounds are normal. Extremities have no cyanosis or clubbing. Neurologically he is awake, alert and oriented times three. Today's labs show WBC count 12.9, hemoglobin 10.2 and hematocrit 30.9. Platelets 235. Sodium is 148, potassium 4.0, CO2 21, chloride 121, BUN 20 and creatinine 1.37. Calcium level is 7.0 and albumin is 2.0. His ionized calcium was 4.2 yesterday with total serum calcium of 6.7. Magnesium was 1.3 yesterday and has not been checked today. PROBLEMS: 1. Acute kidney injury. Kidney function is improving nicely and patient remains on IV half normal saline. His oral intake is also improving. I have encouraged the patient to increase his oral intake of fluid. 2. Hypernatremia. Mild hypernatremia is related to IV fluids and unchanged since yesterday. He is currently receiving half normal saline. The patient is also being encouraged to increase his oral fluid intake which will help to correct his dehydration and hypernatremia. 3. Hypomagnesemia. His magnesium level was 1.3 yesterday and most likely this is nutritional and related to diarrhea. We will give him and another dose of magnesium today and recheck his magnesium level along with renal profile tomorrow morning. 4. Diarrhea. His diarrhea is improving and remains on antibiotics including ciprofloxacin 250 mg b.i.d.
[2019-07-01] MEDS ORDERED: MAG SULF 1GM/100ML (MAG RUN) 1 GM in APPROPRIATE DILUENT 1 EA IV ONE (07:45)
[2019-07-01] MEDS ORDERED: NEUTRA-PHOS 1.5 GM PACKET PO SCH (09:00)
[2019-07-01] MEDS: PANTOPRAZOLE 20 MG TAB PO SCH (09:22)
[2019-07-01] MEDS: ASPIRIN 81 MG ENTERIC TAB PO SCH (09:22)
[2019-07-01] MEDS ORDERED: CIPR-250 PO (09:49)
--- NOTE | 2019-07-01 11:28 | DS.PDOC ---
Discharge Summary General Date of Admission Jun 27, 2019 at 12:54 Date of Discharge 07/01/19 Attending Physician: YANIRA SHARMA MD Specialist/Consultants Involve: A Discharge Summary PROCEDURES PERFORMED DURING STAY: None. ADMITTING DIAGNOSES: 1. Acute kidney injury, dehydration. DISCHARGE DIAGNOSES: 1. Acute kidney injury. Moderate dehydration ,hypokalemia, hypomagnesemia, gastroenteritis. COMPLICATIONS/CHIEF COMPLAINT: Acute Renal Failure,Dehydration. HISTORY OF PRESENT ILLNESS: 88 years old white male who is a poor historian secondary to cognitive slowing The ED with his 2 daughters with chief complaints of nausea, vomiting and diarrhea since last 5 days. As per patient and his family, he started throwing up and having continuous diarrhea and vomiting since last 5 days. Patient denies any abdominal pain. No history of fever, shortness of breath, chest pain, etc. Patient does have a history of Crohn's disease, but as per him, these are not the same symptoms. HOSPITAL COURSE: 88 years old white male with past medical history of hypertension, had developed nausea, vomiting, diarrhea since last 5 days. Patient doesn't history of Crohn's disease and hypertension for which he takes calcium genital yoan and IVORY inhibitor. Acute renal failure could be secondary to multiple factors including nausea, vomiting, diarrhea, and as well as ivory inhibitors. Patient was diagnosed with acute in the affected failure secondary to dehydration and diarrhea Also gastroenteritis secondary to compylobacter and Escherichia coli BUN is 15, creatinine 1.36 today Patient is still has a hypophosphatemia and hypomagnesemia which is being corrected Patient wishes to leave today. He is threatening to sign out AMA if not discharged His bowel movements have decreased in frequency and has a semi-formed stool. He has been counseling regarding heat and healthy discarding leftover or old food. Daughter was also counseled regarding this issue. Patient is getting magnesium sulfate 2 g IV and Neutra-Phos once he is done with the supplements. He'll be discharged home on by mouth Cipluis manuel Sugar has been advised to increase oral intake of liquids when he gets home and eat regular warm meals which of fresh not leftover or cold DISCHARGE MEDICATIONS: Please see below. ALLERGIES: Please see below. PHYSICAL EXAMINATION ON DISCHARGE: VITAL SIGNS: Please see below. GENERAL: Within normal limits HEENT: PERRLA, extra ocular muscles intact NECK: Supple CARDIOVASCULAR EXAMINATION: S1, S2, regular RESPIRATORY EXAMINATION: Clear to A&P ABDOMINAL EXAMINATION: , Soft, nontender, bowel sounds present EXTREMITIES: No clubbing, cyanosis, edema SKIN: Normal NEUROLOGICAL EXAMINATION: No focal motor sensory deficit PSYCHIATRIC EXAMINATION: Normal LABORATORY DATA: Please see below. IMAGING: Abdominal sonogram;The right kidney is atrophic size. The left kidney is low normal size. The kidneys are otherwise unremarkable. The gallbladder, pancreas and aorta are obscured by bowel gas. The hepatic parenchyma is unremarkable. No right upper quadrant ascites. PROGNOSIS: Good ACTIVITY: As tolerated. DIET: As tolerated DISCHARGE PLAN: Follow with PCP in one week DISPOSITION: . Home DISCHARGE INSTRUCTIONS: 1. As per discharge instructions. ITEMS TO FOLLOWUP ON ON OUTPATIENT: 1. Follow with PCP one week. DISCHARGE CONDITION: Stable. TIME SPENT ON DISCHARGE: 45 minutes. Vital Signs/I&Os Vital Signs Date Time Temp Pulse Resp B/P (MAP) Pulse Ox O2 Delivery O2 Flow Rate FiO2 07/01/19 06:00 99.2 73 18 162/76 (104) 98 06/27/19 15:09 Room Air I&O- Last 24 Hours up to 6 AM 07/01/19 06:00 Intake Total 2300 ml Output Total 1200 ml Balance 1100 ml Laboratory Data Labs 24H Laboratory Tests 2 07/01/19 06:51: Immature Granulocyte % (Auto) 0.5, White Blood Count 15.0H, Red Blood Count 3.85L, Hemoglobin 11.2L, Hematocrit 34.0L, Mean Corpuscular Volume 88.3, Mean Corpuscular Hemoglobin 29.1, Mean Corpuscular Hemoglobin Concent 32.9, Red Cell Distribution Width 14.4, Platelet Count 252, Neutrophils (%) (Auto) 66.3H, Lymphocytes (%) (Auto) 22.4L, Monocytes (%) (Auto) 7.5H, Eosinophils (%) (Auto) 2.9, Basophils (%) (Auto) 0.4, Neutrophils # (Auto) 9.9H, Lymphocytes # (Auto) 3.4, Monocytes # (Auto) 1.1H, Eosinophils # (Auto) 0.4, Basophils # (Auto) 0.1, Nucleated Red Blood Cells % (auto) 0.0, Anion Gap 6L, Glomerular Filtration Rate 52.6, Blood Urea Nitrogen 15, Creatinine 1.36H, Sodium Level 148H, Potassium Level 4.2, Chloride Level 120H, Carbon Dioxide Level 22, Calcium Level 7.8L, Phosphorus Level 1.2L, Aspartate Amino Transf (AST/SGOT) 16, Alanine Aminotransferase (ALT/SGPT) 12, Alkaline Phosphatase 75, Total Bilirubin 0.4, Total Protein 5.2L, Albumin 2.3L, Whole Blood Ionized Calcium 4.5, Magnesium Level 1.2L, Albumin/Globulin Ratio 0.79L CBC/BMP Laboratory Tests 07/01/19 06:51 Red Blood Count 3.85 L, Mean Corpuscular Volume 88.3, Mean Corpuscular Hemoglobin 29.1, Mean Corpuscular Hemoglobin Concent 32.9, Red Cell Distribution Width 14.4, Neutrophils (%) (Auto) 66.3 H, Lymphocytes (%) (Auto) 22.4 L, Monocytes (%) (Auto) 7.5 H, Eosinophils (%) (Auto) 2.9, Basophils (%) (Auto) 0.4, Neutrophils # (Auto) 9.9 H, Lymphocytes # (Auto) 3.4, Monocytes # (Auto) 1.1 H, Eosinophils # (Auto) 0.4, Basophils # (Auto) 0.1, Calcium Level 7.8 L, Phosphorus Level 1.2 L, Aspartate Amino Transf (AST/SGOT) 16, Alanine Aminotransferase (ALT/SGPT) 12, Alkaline Phosphatase 75, Total Bilirubin 0.4, Total Protein 5.2 L, Albumin 2.3 L Microbiology Microbiology 06/27/19 Gastrointestinal Tract Panel (PCR) - Final, Complete Campylobacter Enteroaggregative E.coli Discharge Medications Scheduled Amlodipine Besylate (Amlodipine Besylate) 2.5 Mg Tablet, 2.5 MG PO DAILY, (Reported) Aspirin (Ecotrin) 81 Mg Tablet.dr, 81 MG PO DAILY, (Reported) Ciprofloxacin HCl (Cipro) 250 Mg Tablet, 250 MG PO BID@ Cyanocobalamin (Vitamin B-12) (Vitamin B12) 2,500 Mcg Tablet, 2,500 MCG PO DAILY, (Reported) Magnesium Chloride (Mag64) 64 Mg Tabcr, 1 TAB PO DAILY, (Reported) Pantoprazole Sodium (Pantoprazole Sodium) 40 Mg Tablet.dr, 40 MG PO DAILY, (Reported) Vedolizumab (Entyvio) 300 Mg Inj, 300 MG IV QMONTH, (Reported) WAS DUE TO RECEIVE 06/27/19 Vitamin D (Vitamin D3) 1,000 Unit Tablet, 2,000 UNITS PO DAILY, (Reported) Allergies Coded Allergies: No Known Allergies (Unverified , 05/01/19) YANIRA SHARMA MD Jul 01, 2019 11:28
--- NOTE | 2019-07-02 18:37 | IPN ---
DATE: 07/01/2019 Mr. Stanlye is seen this morning on his bedside. He is laying in his bed comfortably. He is currently receiving intravenous magnesium. His intravenous (IV) fluid has already been stopped. He denies any nausea or vomiting and his diarrhea has improved. He has Crohn's disease with recurrent loose stools, but at present he is feeling well. He has no fever or chills. PHYSICAL EXAMINATION: Temperature 99.2 degrees Fahrenheit, heart rate 72 per minute and respiratory rate 18 per minute. Blood pressure 162/76 mmHg and oxygen saturation 98% on room air. Head is atraumatic. Neck is supple and without jugular venous distention (JVD) or thyroid enlargement. He is edentulous and without any oral thrush or ulcers. Heart sounds are regular Lungs clear to auscultation. Abdomen soft and nontender and bowel sounds are normal. Extremities without any cyanosis or clubbing. Neurologically he is awake, alert and oriented times three. Today's labs show WBC count 15.0, hemoglobin 11.2 and hematocrit 34.0. Sodium 148, potassium 4.2, chloride 120, CO2 22, BUN 15 and creatinine 1.36. Magnesium level is 1.2 and calcium 7.8. PROBLEMS: 1. Acute kidney injury superimposed on chronic kidney disease. Patient's acute renal failure was related to dehydration, which has improved with IV fluid hydration and seems to be leveled off. This is probably his baseline chronic kidney disease. Patient is being encouraged to increase his oral fluid intake. 2. Hypernatremia, most likely related to IV fluids given. He was receiving half-normal saline until yesterday. Patient is being encouraged again to increase his oral fluid intake, which will help to correct his mild hypernatremia. I do not feel that at this point any other intervention is needed. 3. Hypomagnesemia. His magnesium level remains low and he is currently receiving an IV magnesium supplement of 1 gram. This will need to be followed up further as he remains at risk for hypomagnesemia. 4. Crohn's disease and diarrhea with leukocytosis. His white cell count remains elevated; however, his diarrhea has improved. He has been on Cipro 250 mg twice a day. Patient will need follow up with his primary care provider (PCP). DISPOSITION: Patient tells me that he is being discharged to home this afternoon. I have some concerns about his leukocytosis, hypomagnesemia and hypernatremia. He will need followup with nephrology with in one week.
== END 2019-07-01 12:55 | disposition home or self-care (01) | DRG 372 ==
LOC: M ED 09:21 → M ED INP 12:54 → M MS5PR 15:20
PROVIDERS: ADMIT Internal Medicine; ATTEND Internal Medicine
PROC: 02HV33Z Insertion of Infusion Device into Superior Vena Cava, Percutaneous Approach (ICD-10-PCS; principal; 2019-06-28 16:00)
DX: A04.5 Campylobacter enteritis (principal); N17.9 Acute kidney failure, unspecified; E87.2 Acidosis; E87.1 Hypo-osmolality and hyponatremia; I12.9 Hypertensive chronic kidney disease with stage 1 through stage 4 chronic kidney disease, or unspecified chronic kidney disease; F17.200 Nicotine dependence, unspecified, uncomplicated; I73.9 Peripheral vascular disease, unspecified; Z79.82 Long term (current) use of aspirin; Z79.899 Other long term (current) drug therapy; N18.3 Chronic kidney disease, stage 3 (moderate); E83.39 Other disorders of phosphorus metabolism; E83.42 Hypomagnesemia; E87.6 Hypokalemia; E83.51 Hypocalcemia; E86.0 Dehydration; A04.4 Other intestinal Escherichia coli infections

== ENCOUNTER → 2019-06-27 | Outpatient (CLI) | payer MEDICARE ==
[~2019-06-27] VITALS: Ht 160 cm; Wt 58.7 kg
[~2019-06-27] MED LIST changes: +CIPR-250 PO; +VEDOLIZUMAB 300 MG in NS 250 ML IV ONE
[2019-06-27 08:55] VITALS: BP 93/52
== END ==
LOC: M INFU 08:52
PROVIDERS: ATTEND Internal Medicine Gastroenterology
DX: K50.90 Crohn's disease, unspecified, without complications (principal); Z53.9 Procedure and treatment not carried out, unspecified reason

== ENCOUNTER 2019-07-06 09:09 | Outpatient (CLI) | payer MEDICARE ==
[~2019-07-06] VITALS: Ht 160 cm; Wt 58.7 kg
[~2019-07-06 09:09] MED LIST changes: +AMLO2.5T3 PO; +CIPR-250 PO; +LISI-538 PO; +PANT-23 PO
[2019-07-06 09:10] VITALS: BP 161/85
[2019-07-06] MEDS ORDERED: VEDOLIZUMAB 300 MG in NS 250 ML IV ONE (09:30)
[2019-07-06 11:00] VITALS: BP 152/59
== END 2019-07-06 11:00 | disposition home or self-care (01) ==
LOC: M INFU 09:09
PROVIDERS: ATTEND Internal Medicine Gastroenterology
DX: K50.90 Crohn's disease, unspecified, without complications (principal)
CPT/HCPCS: 96365; J3380

== ENCOUNTER 2019-08-31 08:35 | Outpatient (CLI) | payer MEDICARE ==
[~2019-08-31] VITALS: Ht 160 cm; Wt 58.7 kg
[2019-08-31 08:45] VITALS: BP 133/62
[2019-08-31] MEDS ORDERED: VEDOLIZUMAB 300 MG in NS 250 ML IV ONE (09:00)
[2019-08-31 10:14] VITALS: BP 130/61
== END 2019-08-31 10:15 | disposition home or self-care (01) ==
LOC: M INFU 08:35
PROVIDERS: ATTEND Internal Medicine Gastroenterology
DX: K50.90 Crohn's disease, unspecified, without complications (principal)
CPT/HCPCS: 96365; J3380

== ENCOUNTER → 2019-09-14 | Outpatient (CLI) | payer MEDICARE ==
--- NOTE | 2019-09-14 14:15 | REP ---
Clinical: History of claudication. Comparison: 06/18/2019 Technique: Real time kellogg scale and color Doppler evaluation of the bilateral lower extremity arterial vasculature using linear high frequency transducer. Findings: Severe atheromatous plaquing noted bilaterally (right greater than left). With the exception of monophasic wave pattern at the distal right anterior tibial artery, biphasic wave patterns are noted where flow is appreciated. Evaluation of the right lower extremity demonstrates continued evidence for occlusion involving the proximal to mid superficial femoral artery and new areas of occlusion at the distal posterior tibial artery and distal anterior tibial artery with revascularization at the ankle. Evaluation of the left lower extremity demonstrates stenosis at the profunda and tibioperoneal trunk. There is occlusion of the distal posterior tibial artery. Right HALEY: 0.65 Left HALEY: 0.94 Peak systolic velocities (cm/sec) RIGHT LEFT Common femoral artery 120 105 Profunda femoris 196 206 SFA (proximal) occlusion 148 SFA (mid) occlusion 118 SFA (distal) 34.1 201 Popliteal artery 29.3 75.7 MELVIN (prox.) 34.4 60.2 Tibioperoneal trunk 24.4 69/132 CHILD CARE COOK (prox.) 29.4 74.5 CHILD CARE COOK (distal) occlusion occlusion MELVIN (distal) occlusion/16.8 29.2 Impression: Severe atheromatous plaquing noted bilaterally. 2. Continued evidence for occlusion involving the right proximal to mid superficial femoral artery. 2. Presumed new areas of occlusion involving the right distal posterior tibial artery and distal anterior tibial artery as well as left distal posterior tibial artery. Electronically Signed by Hayden Cadena MD 09/14/2019 02:06 P
== END ==
LOC: M RAD 11:53
PROVIDERS: ATTEND Physician Assistant
DX: I70.211 Atherosclerosis of native arteries of extremities with intermittent claudication, right leg (principal)

== ENCOUNTER 2019-10-15 11:39 | Outpatient (CLI) | payer MEDICARE ==
[~2019-10-15] VITALS: Ht 160 cm; Wt 60.7 kg
[2019-10-15 11:45] VITALS: BP 144/65
[2019-10-15] MEDS ORDERED: VEDOLIZUMAB 300 MG in NS 250 ML IV ONE (12:00)
[2019-10-15] MEDS ORDERED: SM M250T PO (12:28)
[2019-10-15 13:15] VITALS: BP 135/60
== END 2019-10-15 13:15 | disposition home or self-care (01) ==
LOC: M INFU 11:39
PROVIDERS: ATTEND Internal Medicine Gastroenterology
DX: K50.90 Crohn's disease, unspecified, without complications (principal); Z79.82 Long term (current) use of aspirin; Z79.899 Other long term (current) drug therapy
CPT/HCPCS: 96365; J3380

== ENCOUNTER 2019-11-23 08:44 | Outpatient (CLI) | payer MEDICARE ==
[~2019-11-23] VITALS: Ht 160 cm; Wt 60.7 kg
[~2019-11-23 08:44] MED LIST changes: +SM M250T PO
[2019-11-23 09:00] VITALS: BP 168/77
[2019-11-23] MEDS ORDERED: VEDOLIZUMAB 300 MG in NS 250 ML IV ONE (09:00)
[2019-11-23 10:45] VITALS: BP 145/63
== END 2019-11-23 10:50 | disposition home or self-care (01) ==
LOC: M INFU 08:44
PROVIDERS: ATTEND Internal Medicine Gastroenterology
DX: K50.90 Crohn's disease, unspecified, without complications (principal)
CPT/HCPCS: 96365; J3380

== ENCOUNTER → 2019-12-19 | Outpatient (REF) | payer MEDICARE ==
[~2019-12-19] MED LIST changes: -ACET325T10 PO; +ACET325T11 PO
[2019-12-19 13:37] LABS: INR 1.1; PROTHROMBIN TIME 13.9 SECONDS (11.8-14.0)
[2019-12-19 13:51] LABS: BASO # 0.1 10^3/uL (0.0-0.2); BASO % 0.6 % (0.0-1.0); EOS # 0.2 10^3/uL (0.0-0.5); EOS % 1.7 % (0.0-3.0); HEMATOCRIT 42.3 % (42.0-52.0); HEMOGLOBIN 13.2 g/dl (13.5-17.5); LYMPH # 3.2 10^3/uL (1.5-5.0); LYMPH % 25.6 % (24.0-44.0); MEAN CORPUSCULAR HEMOGLOBIN 28.3 pg (27.0-33.0); MEAN CORPUSCULAR HGB CONC 31.2 g/dl (32.0-36.5); MEAN CORPUSCULAR VOLUME 90.8 fl (80.0-96.0); MONO # 0.9 10^3/uL (0.0-0.8); MONO % 7.2 % (0.0-5.0); NEUTROPHILS # 8.1 10^3/uL (1.5-8.5); NEUTROPHILS % 64.6 % (36.0-66.0); PLATELET COUNT, AUTOMATED 259 10^3/uL (150-450); RED BLOOD COUNT 4.66 10^6/uL (4.30-6.10); WHITE BLOOD COUNT 12.6 10^3/uL (4.0-10.0)
[2019-12-19 13:55] LABS: ALBUMIN 2.8 GM/DL (3.2-5.2); BILIRUBIN,TOTAL 0.4 MG/DL (0.2-1.0); CALCIUM LEVEL 8.7 MG/DL (8.8-10.2); CREATININE FOR GFR 1.6 MG/DL (0.70-1.30); GLOMERULAR FILTRATION RATE 43.5 (>35); POTASSIUM SERUM 5.2 MEQ/L (3.5-5.1); TOTAL PROTEIN 6.5 GM/DL (6.4-8.2)
== END ==
LOC: M LAB REF 12:45
PROVIDERS: ATTEND Nurse Practitioner Family
DX: I70.90 Unspecified atherosclerosis (principal); K50.818 Crohn's disease of both small and large intestine with other complication; R73.9 Hyperglycemia, unspecified; Z72.0 Tobacco use; I10 Essential (primary) hypertension

== ENCOUNTER → 2019-12-24 | Outpatient (REF) | payer MEDICARE | LOC: M LAB REF 09:57 | PROVIDERS: ATTEND Internal Medicine Gastroenterology | DX: K50.00 Crohn's disease of small intestine without complications (principal); R19.7 Diarrhea, unspecified ==

== ENCOUNTER → 2019-12-24 | Outpatient (CLI) | payer MEDICARE ==
[~2019-12-24] MED LIST changes: +LIDOCAINE 1% MDV 20ML VIAL As Ordered ONE; +MIDAZOLAM INJ 2 MG/2 ML VIAL (J2250) As Ordered ONE; +ceFAZolin 1GM INJ (J0690 PER 500MG) As Ordered ONE; +diphenhydrAMINE INJ 50MG/ML VIAL (J1200) As Ordered ONE; +fentaNYL 100 MCG/2 ML INJECTION (J3010) As Ordered ONE
--- NOTE | 2019-12-24 11:07 | IRHP ---
[facility] IR Pre-Procedure H & P General Date of Service: Dec 24, 2019 Procedure: Same Day Surgery Interval History and Physical I have seen the patient and reviewed last H & P performed within 30 days. There is no significant interval change. History of Present Illness Chief Complaint The patient is a 89-year-old male admitted with a reason for visit of Crohn's Disease-Frequent Infusion. PRE-PROCEDURE DIAGNOSIS: crohn's disease HEART: normal rate. LUNGS: normal breathing at rest. ASA Classification ASA Classification: II-Mild systemic disease Mallampati Score: II NPO: Yes Problems with prior sedation: No Obstructive Sleep Apnea: No Plan moderate sedation Allergies Coded Allergies: No Known Allergies (Unverified , 05/01/19) Home Medications Scheduled Amlodipine Besylate (Amlodipine Besylate), 2.5 MG PO DAILY, (Reported) Aspirin (Ecotrin), 81 MG PO DAILY, (Reported) Cyanocobalamin (Vitamin B-12) (Vitamin B12), 2,500 MCG PO DAILY, (Reported) Magnesium (Magnesium), 2 TAB PO TID, (Reported) Pantoprazole Sodium (Pantoprazole Sodium), 40 MG PO DAILY, (Reported) Vedolizumab (Entyvio), 300 MG IV QMONTH, (Reported) Vitamin D (Vitamin D3), 2,000 UNITS PO DAILY, (Reported) VS, I&O, 24H, Fishbone Vital Signs/I&O Vital Signs Date Time Temp Pulse Resp B/P (MAP) Pulse Ox O2 Delivery O2 Flow Rate FiO2 12/24/19 11:00 68 16 100 Nasal Cannula 2 12/24/19 10:02 97.9 RAHEEL RILEY MD Dec 24, 2019 11:07
--- NOTE | 2019-12-24 11:08 | POST-OPPD ---
Postoperative Procedure Note Date Of Procedure: Dec 24, 2019 Time Of Procedure: 11:07 PREOPERATIVE DIAGNOSIS: crohn's POSTOPERATIVE DIAGNOSIS: same FINDINGS: patent right IJ PROCEDURE: right side port SURGEON: khadra ANESTHESIA: mod sed ESTIMATED BLOOD LOSS: < 5 ml COMPLICATIONS: none POSTOPERATIVE CONDITION: stable RAHEEL RILEY MD Dec 24, 2019 11:08
[2019-12-24 12:55] VITALS: BP 154/74
--- NOTE | 2019-12-24 14:51 | POST-OPPD ---
Postoperative Procedure Note Date Of Procedure: Dec 24, 2019 Time Of Procedure: 14:50 PREOPERATIVE DIAGNOSIS: crohn's. on going need for IV access POSTOPERATIVE DIAGNOSIS: same FINDINGS: patent right IJ PROCEDURE: right side port. ready to use SURGEON: khadra ANESTHESIA: mod sed ESTIMATED BLOOD LOSS: < 5 ml COMPLICATIONS: none POSTOPERATIVE CONDITION: stable RAHEEL RILEY MD Dec 24, 2019 14:51
--- NOTE | 2019-12-25 12:32 | REP ---
IR Ultrasound and fluoroscopy-guided port placement. IR Ultrasound of the neck. IR Moderate sedation. Clinical information: Crohn's disease. Physician: Dr. Mckenzie. Procedure: The patient was advised of the benefits, risks, and alternatives of the procedure and informed consent was obtained. A time-out was performed with verification of the patient's name, MRN, site of procedure and type of procedure to be performed. The patient was positioned in the supine position on the angiographic table. The site was prepped and draped in the usual sterile fashion. Moderate sedation was performed by the physician including the presence of an independent trained observer who assisted and monitored the patient's level of consciousness and physiologic status. Following the administration of fentanyl and Versed, the physician spent 45 minutes of continuous face to face time with the patient. Ultrasound of the neck reveals a patent and compressible right internal jugular vein. A event marketing specialist radiograph reveals right clavicular hardware. The neck and anterior chest wall were anesthetized with lidocaine. The right internal jugular vein was accessed using a microintroducer needle under ultrasound guidance, via a lateral approach. An 018 wire was advanced into the superior vena cava, the needle was removed and a microsheath was placed. An Amplatz wire was then passed into the inferior vena cava. An incision at the internal jugular vein access site and anterior chest wall were made using a scalpel. An incision was made at the anterior chest wall. A small pocket was created using a combination of blunt and sharp dissection. A tunneling device was then used to pass the catheter from the pocket to the neck puncture site. An 8-[employer] smart power port was then positioned in the pocket. The catheter was then measured and cut. The introducer sheath was exchanged for a peel-away sheath. The catheter was passed through the peel-away sheath into the internal jugular vein and the peel-away sheath was removed. The port tip was positioned at the cavoatrial junction. The port was then accessed with a Rubio needle. The port flushes and aspirates well. The puncture site in the neck was closed. The chest wall incision was then closed with 2-0 Vicryl and 4-0 Monocryl. Glue and Steri-Strips were applied. A sterile dressing was then applied. The patient tolerated the procedure well and was returned to the PRU in stable condition. Estimated blood loss: <5 ml. Complications: None. Conclusion: 1. Successful placement of an 8-[employer] smart power port via the right internal jugular vein. The port is ready for immediate use. 2. Patient to follow up in IR clinic in 2 weeks. Thank you for this referral. Electronically Signed by Ana Mckenzie MD 12/25/2019 12:30 P
== END ==
LOC: M IRPRO 09:03
PROVIDERS: ATTEND Nurse Practitioner Family
DX: K50.818 Crohn's disease of both small and large intestine with other complication (principal)
CPT/HCPCS: 36561; 99152; 99153; C1769; C1788; C1894; J0690; J1200; J1642; J1644; J2250; J3010

== ENCOUNTER 2020-01-04 08:39 | Outpatient (CLI) | payer MEDICARE ==
[~2020-01-04] VITALS: Ht 160 cm; Wt 60.7 kg
[~2020-01-04 08:39] MED LIST changes: -LIDOCAINE 1% MDV 20ML VIAL As Ordered ONE; -MIDAZOLAM INJ 2 MG/2 ML VIAL (J2250) As Ordered ONE; -ceFAZolin 1GM INJ (J0690 PER 500MG) As Ordered ONE; -diphenhydrAMINE INJ 50MG/ML VIAL (J1200) As Ordered ONE; -fentaNYL 100 MCG/2 ML INJECTION (J3010) As Ordered ONE
[2020-01-04 08:59] VITALS: BP 159/74
[2020-01-04] MEDS ORDERED: VEDOLIZUMAB 300 MG in NS 250 ML IV ONE (09:15)
[2020-01-04 09:45] VITALS: BP 132/60
== END 2020-01-04 09:45 | disposition home or self-care (01) ==
LOC: M INFU 08:39
PROVIDERS: ATTEND Internal Medicine Gastroenterology
DX: K50.90 Crohn's disease, unspecified, without complications (principal)
CPT/HCPCS: 96365; J3380

== ENCOUNTER → 2020-01-10 | Outpatient (REF) | payer MEDICARE ==
[2020-01-10 12:51] LABS: BASO # 0.1 10^3/uL (0.0-0.2); BASO % 0.6 % (0.0-1.0); EOS # 0.3 10^3/uL (0.0-0.5); EOS % 1.9 % (0.0-3.0); HEMATOCRIT 41.9 % (42.0-52.0); HEMOGLOBIN 13.2 g/dl (13.5-17.5); LYMPH % 20.8 % (24.0-44.0); MEAN CORPUSCULAR HEMOGLOBIN 28.7 pg (27.0-33.0); MEAN CORPUSCULAR HGB CONC 31.5 g/dl (32.0-36.5); MEAN CORPUSCULAR VOLUME 91.1 fl (80.0-96.0); MONO # 1.4 10^3/uL (0.0-0.8); MONO % 9.5 % (0.0-5.0); NEUTROPHILS # 9.7 10^3/uL (1.5-8.5); NEUTROPHILS % 66.8 % (36.0-66.0); PLATELET COUNT, AUTOMATED 242 10^3/uL (150-450); WHITE BLOOD COUNT 14.5 10^3/uL (4.0-10.0)
[2020-01-10 13:04] LABS: ALBUMIN 2.9 GM/DL (3.2-5.2); BILIRUBIN,TOTAL 0.4 MG/DL (0.2-1.0); CHOLESTEROL RISK RATIO 3.23 (<5); CREATININE FOR GFR 1.47 MG/DL (0.70-1.30); FREE T4 0.93 NG/DL (0.76-1.46); HEMOGLOBIN A1c 5.8 %; POTASSIUM SERUM 5.4 MEQ/L (3.5-5.1); THYROID STIMULATING HORMONE 1.92 uIU/ML (0.358-3.740); TOTAL 25(OH) VITAMIN D 29.2 NG/ML (30.0-100.0); TOTAL PROTEIN 6.5 GM/DL (6.4-8.2)
[2020-01-10 13:05] LABS: FOLATE 9.4 NG/ML
== END ==
LOC: M LAB REF 12:23
PROVIDERS: ATTEND Nurse Practitioner Family
DX: I70.90 Unspecified atherosclerosis (principal); E66.3 Overweight; E55.9 Vitamin D deficiency, unspecified; R35.8 Other polyuria; Z72.0 Tobacco use; I10 Essential (primary) hypertension; Z79.899 Other long term (current) drug therapy

== ENCOUNTER → 2020-01-29 | Outpatient (POV) | payer MEDICARE ==
--- NOTE | 2020-01-30 09:42 | IRPN ---
[facility] IR Progress Note IR Progress Note DATE: Jan 29, 2020 Tele follow up FOLLOW-UP: status post port placement, patient doing well. No pain, fever or discomfort. Port not used yet but patient states he has appointment on to get it flushed. ON EXAMINATION: No video conference available on patient side, IMPRESSION: Doing well status post port placement. No further follow up needed unless scheduled by patient and or referring provider. Thank you for this referral Allergies Coded Allergies: No Known Allergies (Unverified , 05/01/19) RAHEEL RILEY MD Jan 30, 2020 09:41
== END ==
LOC: M IRPOV 10:02
PROVIDERS: ATTEND Radiology Diagnostic Radiology
DX: Z45.2 Encounter for adjustment and management of vascular access device (principal)

== ENCOUNTER 2020-02-01 08:37 | Outpatient (CLI) | payer MEDICARE, OTHER ==
[~2020-02-01] VITALS: Ht 160 cm; Wt 60.7 kg
[2020-02-01 08:40] VITALS: BP 150/72
[2020-02-01] MEDS ORDERED: VEDOLIZUMAB 300 MG in NS 250 ML IV ONE (09:00)
[2020-02-01] MEDS ORDERED: SODIUM CHLORIDE 0.9% INJ 10 ML SYR IV PRN (09:00)
[2020-02-01] MEDS ORDERED: SODIUM CHLORIDE 0.9% INJ 10 ML SYR IV SCH (09:00)
[2020-02-01 09:57] VITALS: BP 158/71
== END 2020-02-01 10:00 | disposition home or self-care (01) ==
LOC: M INFU 08:37
PROVIDERS: ATTEND Internal Medicine Gastroenterology
DX: K50.90 Crohn's disease, unspecified, without complications (principal)
CPT/HCPCS: 96365; J1642; J3380

== ENCOUNTER 2020-02-29 09:47 | Outpatient (CLI) | payer MEDICARE ==
[~2020-02-29] VITALS: Ht 160 cm; Wt 60.7 kg
[2020-02-29 09:50] VITALS: BP 161/70
[2020-02-29] MEDS ORDERED: SODIUM CHLORIDE 0.9% INJ 10 ML SYR IV PRN (10:00)
[2020-02-29 11:00] VITALS: BP 143/65
[2020-02-29] MEDS ORDERED: VEDOLIZUMAB 300 MG in NS 250 ML IV ONE (11:00)
[2020-03-01] MEDS ORDERED: SODIUM CHLORIDE 0.9% INJ 10 ML SYR IV SCH (09:00)
== END 2020-02-29 11:00 | disposition home or self-care (01) ==
LOC: M INFU 09:47
PROVIDERS: ATTEND Internal Medicine Gastroenterology
DX: K50.90 Crohn's disease, unspecified, without complications (principal)
CPT/HCPCS: 96365; J1642; J3380

== ENCOUNTER → 2020-02-29 | Outpatient (REF) | payer MEDICARE | LOC: M LAB REF 10:22 | PROVIDERS: ATTEND Internal Medicine Gastroenterology | DX: K50.018 Crohn's disease of small intestine with other complication (principal) ==

== ENCOUNTER 2020-03-28 11:27 | Outpatient (CLI) | payer MEDICARE ==
[~2020-03-28] VITALS: Ht 160 cm; Wt 60.7 kg
[2020-03-28 11:35] VITALS: BP_SYST 116; BP_SYST 146; BP_DIAS 61; BP_DIAS 65
[2020-03-28] MEDS ORDERED: SODIUM CHLORIDE 0.9% INJ 10 ML SYR IV PRN (11:45)
[2020-03-28] MEDS ORDERED: VEDOLIZUMAB 300 MG in NS 250 ML IV ONE (11:45)
[2020-03-28 12:45] VITALS: BP 120/58
[2020-03-29] MEDS ORDERED: SODIUM CHLORIDE 0.9% INJ 10 ML SYR IV SCH (09:00)
== END 2020-03-28 12:45 | disposition home or self-care (01) ==
LOC: M INFU 11:27
PROVIDERS: ATTEND Internal Medicine Gastroenterology
DX: K50.90 Crohn's disease, unspecified, without complications (principal)
CPT/HCPCS: 96365; J1642; J3380

== ENCOUNTER 2020-04-04 09:37 | Outpatient (CLI) | payer MEDICARE ==
[~2020-04-04] VITALS: Ht 160 cm; Wt 60.7 kg
[~2020-04-04 09:37] MED LIST changes: +PANT40TA29 PO; -PANT40TA3 PO
[2020-04-04 09:40] VITALS: BP 138/63
[2020-04-04] MEDS ORDERED: ALTEPLASE 2MG/2ML VIAL XX SCH (09:45)
[2020-04-04] MEDS ORDERED: SODIUM CHLORIDE 0.9% INJ 10 ML SYR IV PRN (10:00)
[2020-04-05] MEDS ORDERED: SODIUM CHLORIDE 0.9% INJ 10 ML SYR IV SCH (09:00)
== END 2020-04-04 10:10 | disposition home or self-care (01) ==
LOC: M INFU 09:37
PROVIDERS: ATTEND Radiology Diagnostic Radiology
DX: K50.90 Crohn's disease, unspecified, without complications (principal)
CPT/HCPCS: 36593; 96523; J1642

== ENCOUNTER → 2020-04-09 | Outpatient (CLI) | payer MEDICARE ==
[~2020-04-09] MED LIST changes: -PANT40TA29 PO; +PANT40TA3 PO
--- NOTE | 2020-04-09 13:03 | REP ---
Bilateral lower extremity arterial Doppler ultrasound: History: Follow-up peripheral arterial disease. Comparison sonography September 14, 2019. Findings: Ankle brachial indices are measured at 0.4 On the right and at 1.0 On the left. The proximal and mid segments of the right superficial femoral artery are again noted to be occluded. Revascularized flow is seen in the distal superficial femoral artery. Monophasic waveforms are noted in the arterial tree in the right lower extremity below the popliteal. Biphasic waveforms are noted throughout the left lower extremity except in the distal posterior tibial which is monophasic. No high-grade stenosis. Findings similar to the prior study. Right lower extremity arterial Doppler velocity chart: Right CF A PSV 119 cm/S Profunda 341 Proximal SFA 48/occluded mid SFA occluded Distal SFA 21-45 Popliteal 24 Proximal AT A 14 Tibioperoneal trunk 25 Proximal CLOCK MAKER 32 Distal CLOCK MAKER 10 Distal AT A 27 Left lower extremity arterial Doppler velocity chart: Left CF A PSV 92 cm/S Profunda 120 Proximal SFA 48 Mid SFA 68 Distal SFA 84 Popliteal 109/70 Proximal AT A 80 Tibioperoneal trunk 44 Proximal CLOCK MAKER 90 Distal CLOCK MAKER 29 Distal AT A 86 Electronically Signed by Srikanth Sethi MD 04/09/2020 12:55 P
== END ==
LOC: M RAD 11:05
PROVIDERS: ATTEND Physician Assistant
DX: I70.211 Atherosclerosis of native arteries of extremities with intermittent claudication, right leg (principal)

== ENCOUNTER → 2020-04-16 | Outpatient (REF) | payer MEDICARE ==
[~2020-04-16] MED LIST changes: +PANT40TA29 PO; -PANT40TA3 PO
[2020-04-16 12:40] LABS: BASO # 0.1 10^3/uL (0.0-0.2); BASO % 0.6 % (0.0-1.0); EOS # 0.2 10^3/uL (0.0-0.5); EOS % 1.8 % (0.0-3.0); HEMATOCRIT 42.9 % (42.0-52.0); HEMOGLOBIN 13.1 g/dl (13.5-17.5); LYMPH % 29.7 % (24.0-44.0); MEAN CORPUSCULAR HEMOGLOBIN 27.6 pg (27.0-33.0); MEAN CORPUSCULAR HGB CONC 30.5 g/dl (32.0-36.5); MEAN CORPUSCULAR VOLUME 90.5 fl (80.0-96.0); MONO # 1.1 10^3/uL (0.0-0.8); MONO % 8.3 % (0.0-5.0); NEUTROPHILS % 59.1 % (36.0-66.0); PLATELET COUNT, AUTOMATED 311 10^3/uL (150-450); RED BLOOD COUNT 4.74 10^6/uL (4.30-6.10); WHITE BLOOD COUNT 13.5 10^3/uL (4.0-10.0)
[2020-04-16 12:42] LABS: ALBUMIN 2.6 GM/DL (3.2-5.2); BILIRUBIN,TOTAL 0.5 MG/DL (0.2-1.0); CALCIUM LEVEL 8.6 MG/DL (8.8-10.2); CHOLESTEROL RISK RATIO 2.947 (<5); CREATININE FOR GFR 1.85 MG/DL (0.70-1.30); GLOMERULAR FILTRATION RATE 36.8 (>35); POTASSIUM SERUM 4.7 MEQ/L (3.5-5.1); TOTAL PROTEIN 6.5 GM/DL (6.4-8.2)
[2020-04-16 13:23] LABS: HEMOGLOBIN A1c 6.1 %
== END ==
LOC: M LAB REF 11:40
PROVIDERS: ATTEND Nurse Practitioner Family
DX: D50.8 Other iron deficiency anemias (principal); R73.03 Prediabetes; N17.9 Acute kidney failure, unspecified; E66.3 Overweight; R73.9 Hyperglycemia, unspecified; I10 Essential (primary) hypertension; Z72.0 Tobacco use

== ENCOUNTER 2020-04-25 08:36 | Outpatient (CLI) | payer MEDICARE ==
[~2020-04-25] VITALS: Ht 160 cm; Wt 60.7 kg
[2020-04-25 08:40] VITALS: BP 170/70
[2020-04-25] MEDS ORDERED: VEDOLIZUMAB 300 MG in NS 250 ML IV ONE (08:45)
[2020-04-25] MEDS ORDERED: SODIUM CHLORIDE 0.9% INJ 10 ML SYR IV PRN (09:00)
[2020-04-25] MEDS ORDERED: SODIUM CHLORIDE 0.9% INJ 10 ML SYR IV SCH (09:00)
[2020-04-25 09:45] VITALS: BP 158/69
== END 2020-04-25 09:45 | disposition home or self-care (01) ==
LOC: M INFU 08:36
PROVIDERS: ATTEND Internal Medicine Gastroenterology
DX: K50.90 Crohn's disease, unspecified, without complications (principal)
CPT/HCPCS: 96365; J1642; J3380

== ENCOUNTER 2020-05-23 09:00 | Outpatient (CLI) | payer MEDICARE ==
[2020-05-23] MEDS ORDERED: VEDOLIZUMAB 300MG VIAL (ENTYVIO) (J3380 PER 1MG) ONE (09:30)
== END 2020-05-23 10:25 | disposition home or self-care (01) ==
LOC: M INFU 09:00
PROVIDERS: ATTEND Internal Medicine Gastroenterology
DX: K50.90 Crohn's disease, unspecified, without complications (principal)
CPT/HCPCS: 96365; J1642; J3380

== ENCOUNTER 2020-06-20 08:52 | Outpatient (CLI) | payer MEDICARE ==
[~2020-06-20] VITALS: Ht 160 cm; Wt 60.7 kg
[~2020-06-20 08:52] MED LIST changes: +SODIUM CHLORIDE 0.9% INJ 10 ML SYR IV PRN
[2020-06-20 09:00] VITALS: BP 139/69
[2020-06-20] MEDS ORDERED: VEDOLIZUMAB 300 MG in NS 250 ML IV ONE (09:00)
[2020-06-20] MEDS ORDERED: SODIUM CHLORIDE 0.9% INJ 10 ML SYR IV SCH (09:00)
[2020-06-20 09:55] LABS: CREATININE FOR GFR 1.52 MG/DL (0.70-1.30); GLOMERULAR FILTRATION RATE 46.2 (>35)
[2020-06-20 10:05] VITALS: BP 131/58
== END 2020-06-20 10:05 | disposition home or self-care (01) ==
LOC: M INFU 08:52
PROVIDERS: ATTEND Internal Medicine Gastroenterology
DX: K50.90 Crohn's disease, unspecified, without complications (principal)
CPT/HCPCS: 36591; 82565; 84520; 96365; J3380

== ENCOUNTER → 2020-07-14 | Outpatient (REF) | payer MEDICARE ==
[~2020-07-14] MED LIST changes: -SODIUM CHLORIDE 0.9% INJ 10 ML SYR IV PRN
[2020-07-14 14:03] LABS: BASO # 0.1 10^3/uL (0.0-0.2); BASO % 0.7 % (0.0-1.0); EOS # 0.3 10^3/uL (0.0-0.5); EOS % 2.2 % (0.0-3.0); HEMATOCRIT 45.6 % (42.0-52.0); HEMOGLOBIN 14.1 g/dl (13.5-17.5); LYMPH # 3.8 10^3/uL (1.5-5.0); MEAN CORPUSCULAR HEMOGLOBIN 28.4 pg (27.0-33.0); MEAN CORPUSCULAR HGB CONC 30.9 g/dl (32.0-36.5); MEAN CORPUSCULAR VOLUME 91.8 fl (80.0-96.0); MONO # 1.2 10^3/uL (0.0-0.8); MONO % 7.9 % (0.0-5.0); NEUTROPHILS # 9.7 10^3/uL (1.5-8.5); NEUTROPHILS % 63.7 % (36.0-66.0); PLATELET COUNT, AUTOMATED 325 10^3/uL (150-450); RED BLOOD COUNT 4.97 10^6/uL (4.30-6.10); WHITE BLOOD COUNT 15.2 10^3/uL (4.0-10.0)
[2020-07-14 14:04] LABS: ALBUMIN 2.6 GM/DL (3.2-5.2); BILIRUBIN,TOTAL 0.4 MG/DL (0.2-1.0); CALCIUM LEVEL 8.6 MG/DL (8.8-10.2); CHOLESTEROL RISK RATIO 2.354 (<5); CREATININE FOR GFR 1.56 MG/DL (0.70-1.30); GLOMERULAR FILTRATION RATE 44.8 (>35); POTASSIUM SERUM 4.6 MEQ/L (3.5-5.1); TOTAL PROTEIN 6.6 GM/DL (6.4-8.2)
[2020-07-14 14:35] LABS: HEMOGLOBIN A1c 5.5 %
== END ==
LOC: M LAB REF 12:37
PROVIDERS: ATTEND Nurse Practitioner Family
DX: Z00.01 Encounter for general adult medical examination with abnormal findings (principal); R73.03 Prediabetes; Z72.0 Tobacco use; I10 Essential (primary) hypertension

== ENCOUNTER 2020-07-18 08:26 | Outpatient (CLI) | payer MEDICARE ==
[~2020-07-18] VITALS: Ht 160 cm; Wt 63.5 kg
[~2020-07-18 08:26] MED LIST changes: +SODIUM CHLORIDE 0.9% INJ 10 ML SYR IV PRN
[2020-07-18 08:30] VITALS: BP 130/64
[2020-07-18] MEDS: VEDOLIZUMAB 300 MG in NS 250 ML IV ONE (09:42)
[2020-07-18] MEDS: SODIUM CHLORIDE 0.9% INJ 10 ML SYR IV SCH (09:43)
[2020-07-18 10:25] VITALS: BP 136/73
== END 2020-07-18 10:25 | disposition home or self-care (01) ==
LOC: M INFU 08:26
PROVIDERS: ATTEND Internal Medicine Gastroenterology
DX: K50.90 Crohn's disease, unspecified, without complications (principal)
CPT/HCPCS: 36591; 86480; 87340; 96365; J1642; J3380

== ENCOUNTER → 2020-08-06 | Outpatient (REF) | payer MEDICARE ==
[~2020-08-06] MED LIST changes: -SODIUM CHLORIDE 0.9% INJ 10 ML SYR IV PRN
== END ==
LOC: M LAB REF 15:07
PROVIDERS: ATTEND Internal Medicine Gastroenterology
DX: K50.018 Crohn's disease of small intestine with other complication (principal)

== ENCOUNTER → 2020-09-19 | Outpatient (CLI) | payer MEDICARE ==
[~2020-09-19] MED LIST changes: +LIDOCAINE 1% MDV 20ML VIAL As Ordered ONE; +MIDAZOLAM INJ 2MG/2ML VIAL (J2250 PER 1MG) As Ordered ONE; +ceFAZolin 1GM VIAL (J0690 PER 500MG) As Ordered ONE; +diphenhydrAMINE 50MG/ML VIAL (J1200) As Ordered ONE; +fentaNYL 100 MCG/2 ML INJECTION (J3010) As Ordered ONE
--- NOTE | 2020-09-19 10:18 | IRHP ---
[facility] IR Pre-Procedure H & P General Date of Service: Sep 19, 2020 Procedure: Same Day Surgery Interval History and Physical I have seen the patient and reviewed last H & P performed within 30 days. There no significant interval change. History of Present Illness Chief Complaint The patient is a 89-year-old male admitted with a reason for visit of Crohns Dx, No Longer Needed. PRE-PROCEDURE DIAGNOSIS: Crohn's. port no longer needed HEART: normal rate. LUNGS: normal breathing at rest. ASA Classification ASA Classification: III-Severe systemic dis. Mallampati Score: II NPO: Yes Problems with prior sedation: No Obstructive Sleep Apnea: No Plan moderate sedation Allergies Coded Allergies: No Known Allergies (Unverified , 05/01/19) Home Medications Scheduled Vedolizumab (Entyvio), 300 MG IV QMONTH, (Reported) Discontinued Medications Amlodipine Besylate (Amlodipine Besylate), 2.5 MG PO DAILY, (Reported) Discontinued Reason: Pt states not taking Aspirin (Ecotrin), 81 MG PO DAILY, (Reported) Discontinued Reason: Pt states not taking Cyanocobalamin (Vitamin B-12) (Vitamin B12), 2,500 MCG PO DAILY, (Reported) Discontinued Reason: Pt states not taking Magnesium (Magnesium), 2 TAB PO TID, (Reported) Discontinued Reason: Pt states not taking Pantoprazole Sodium (Pantoprazole Sodium), 40 MG PO DAILY, (Reported) Discontinued Reason: Pt states not taking Vitamin D (Vitamin D3), 2,000 UNITS PO DAILY, (Reported) Discontinued Reason: Pt states not taking VS, I&O, 24H, Fishbone Vital Signs/I&O Vital Signs Date Time Temp Pulse Resp B/P (MAP) Pulse Ox O2 Delivery O2 Flow Rate FiO2 09/19/20 09:45 96.9 92 20 99 Room Air RAHEEL RILEY MD Sep 19, 2020 10:18
[2020-09-19 13:15] VITALS: BP 140/70
--- NOTE | 2020-10-14 11:39 | POST-OPPD ---
Postoperative Procedure Note Date Of Procedure: Sep 19, 2020 Time Of Procedure: 16:00 Port Removal / Explant Clinical Information: Crohn's disease. Port no longer needed. Physician: Dr. Mckenzie. Procedure: The patient was advised of the benefits, risks, and alternatives of the procedure and informed consent was obtained. A time out was performed with verification of the patient's name, MRN, site of procedure, and type of procedure to be performed. The patient was positioned in the supine position on the angiographic table. The site was prepped and draped in the usual sterile fashion. Moderate sedation was performed by the physician including the presence of an independent trained RN who assisted in monitoring the patient's level of consciousness and physiological status. Following the administration of fen tanyl and Versed, the physician spent 30 minutes of continuous [id number] time with the patient. A roller billet mill radiograph reveals a right sided port. The soft tissues overlying the port were anesthetized with lidocaine. An incision was made over the port using a 15 blade scalpel in the location of the prior incision. The catheter was then freed with blunt dissection and extracted. Pressure was applied to obtain hemostasis. The port was then freed with blunt dissection and subsequently removed. There were no signs of infection. The incision was closed with interrupted deep 3-0 Vicryl sutures and superficial Monocryl, steristrips and glue. The site was cleansed and covered with a sterile dressing. The patient tolerated the procedure well and was returned to the PRU in stable condition. EBL: < 5 mL. Complications: None. Conclusions: 1. Successful explant of a right chest port. 2. No signs of infection. Thank you for this referral. RAHEEL MCKENZIE MD Oct 14, 2020 11:39
== END ==
LOC: M IRPRO 09:30
PROVIDERS: ATTEND Radiology Diagnostic Radiology
DX: Z45.2 Encounter for adjustment and management of vascular access device (principal); K50.90 Crohn's disease, unspecified, without complications; Z79.899 Other long term (current) drug therapy
CPT/HCPCS: 36590; 99152; 99153; J0690; J1200; J1644; J2250; J3010